=== PATIENT | female | born 1990 | race Caucasian/White ===

== ENCOUNTER 2024-02-10 12:10 | Emergency (ER) | payer BC, SELFPAY ==
[2024-02-10 12:25] VITALS: BP 157/93; PULSE 67; TEMP 36.6; O2SAT 100; BMI 30.8
--- NOTE | 2024-02-10 13:30 | XR_ITS ---
The [address] [address] Patient Name: MELLY SAVAGE MRN: [id number] date: 1990 Sex: F Assigned Patient Location: ER Current Patient Location: ER Accession/Order Number: [id number] Exam Date: 02/10/2024 13:50 Report Date: 02/10/2024 14:05 At the request of: CLEMENTE SMITH Procedure: XR foot LT min 3V IMAGES REVIEWED: XR foot LT min 3V COMPARISON: None available. CLINICAL INDICATION: injury FINDINGS/IMPRESSION: 1. Acute nondisplaced fracture of the distal tuft first distal phalanx appears to be present. 2. There also may be a cortical step-off involving the lateral base of the first distal phalanx. 3. No dislocation. 4. Dorsal forefoot soft tissue swelling. Electronically authenticated by: ALDEN RIDLEY Date: 02/10/2024 14:05
[2024-02-10 15:30] VITALS: BP 140/88; PULSE 64; O2SAT 98
[2024-02-10] MEDS: KETOROLAC TROMETHAMINE 30 MG/ML VIAL IM (15:30)
--- NOTE | 2024-02-10 16:48 | ED_ITS ---
HPI HPI - Extremity Injury (Lower) General Chief Complaint: Extremity Injury, Lower Stated Complaint: LOWER EXTREMITY INJURY Time Seen by Provider: 02/10/24 15:00 Source: patient Mode of arrival: walk-in History of Present Illness HPI Narrative: She had a wooden box fall on her left big toe this a.m., she denies any other injuries and she mentioned that she was doing something at home when this happened. She has been having difficulty walking because of the pain and she felt that the toe is throbbing Related Data Previous Rx's ?Medication ?Instructions ?Recorded diclofenac sodium 75 mg 75 mg PO BID PRN pain #20 tabs 02/10/24 tablet,delayed release Allergies Allergy/AdvReac Type Severity Reaction Status Date / Time No Known Drug Allergies Allergy Verified 02/10/24 12:29 Opioid HPI Opioid Management Most Recent Pain and Opioid Data: No Data to Display Review of Systems ROS Status of ROS 10 or more systems reviewed and unremark able except as noted in history and below Exam Narrative Exam Narrative: Nurses notes and vital signs reviewed and patient is not hypoxic. General: Well-appearing and in no apparent distress. Skin: Warm, dry, no pallor noted. No rash. Head: Normocephalic, atraumatic. Neck: Supple, non-tender. Eye: Pupils are equal, round and EOMI. No scleral icterus. Ears, Nose, Mouth, and Throat: TM are clear, no nasal mucosal hypertrophy. Oral mucosa is moist, no posterior oropharynx erythema, uvula is mid-line Cardiovascular: Regular Rate and Rhythm without murmur, gallop or rub. Respiratory: No accessory muscle use or respiratory distress. Lungs are clear to auscultation, no wheezing, rales or rhonchi Chest Wall: no tenderness Back: No midline thoracic or lumbar vertebral tenderness. No CVA tenderness Musculoskeletal: normal ROM, no calf or popliteal tenderness, the patient have a significant swelling of the big toe on the left side under the nail azeri after being removed she have a hematoma that is C-shaped , GI: Abdomen is soft, non-distended. Normal bowel sounds. No masses appreciated. No tenderness to palpation. No rebound, guarding, or rigidity noted. Neurological: A&O x4. No cranial nerve dysfunction observed. No truncal ataxia. Moves all extremities. Sensation intact. Psychiatric: Cooperative and interactive. Normal mood and affect. Constitutional Vital Signs, click to edit/add: Last Vital Signs Temp 97.9 F 02/10/24 12:25 Pulse 64 02/10/24 15:30 Resp 18 02/10/24 15:30 BP 140/88 02/10/24 15:30 Pulse Ox 98 02/10/24 15:30 O2 Del Method Room Air 02/10/24 12:25 Course Vital Signs Vital signs: Vital Signs Temperature 97.9 F 02/10/24 12:25 Pulse Rate 67 02/10/24 12:25 Respiratory Rate 18 02/10/24 12:25 Blood Pressure 157/93 H 02/10/24 12:25 Pulse Oximetry 100 02/10/24 12:25 Oxygen Delivery Method Room Air 02/10/24 12:25 Temperature 97.9 F 02/10/24 12:25 Pulse Rate 64 02/10/24 15:30 Respiratory Rate 18 02/10/24 15:30 Blood Pressure 140/88 02/10/24 15:30 Pulse Oximetry 98 02/10/24 15:30 Oxygen Delivery Method Room Air 02/10/24 12:25 MDM - Extremity Injury (Lower) MDM Narrative Medical decision making narrative: X-ray of the patient left foot showed that she have a fracture in the tip of the distal phalanx and the it was noted that the patient have this hematoma under the nail of the left big toe but it was noted that this only C-shaped and is not significant right now to cause subungual hematoma But the patient was instructed to elevate her foot and she was provided with Toradol as well as Voltaren for the next few days she was instructed that she need to follow-up with the podiatry as outpatient provided with crutches as well as a postop shoes The patient to come back in case of any progression of the hematoma under the nail and in case of any new symptoms The patient is to follow up with primary care physician in next 2-3 days or to return to the emergency department should any of the signs or symptoms worsen or new symptoms develop. The patient agrees with the following Diagnosis and Treatment plan and the patient will be discharged home. Discharge Plan Discharge Stand Alone Forms: Portal Instructions Chief Complaint: Extremity Injury, Lower Clinical Impression: Fracture of toe Qualifiers: Encounter type: initial encounter Toe: great toe Fracture type: closed Phalanx: distal Fracture alignment: nondisplaced Laterality: left Qualified Code(s): S92.425A - Nondisplaced fracture of distal phalanx of left great toe, initial encounter for closed fracture Patient Disposition: Home, Self-Care Time of Disposition Decision: 15:14 Condition: Good Mode of Transportation: Private Vehicle Prescriptions / Home Meds: New diclofenac sodium 75 mg tablet,delayed release (DR/EC) 75 mg PO BID PRN (Reason: pain ) Qty: 20 0RF Print Language: Jordanian Instructions: Toe Fracture (ED), Post Surgical Shoe (ED) Referrals: ANDRES PICKENS [Primary Care Provider] - 1 week Braulio Tafoya DPM [Physician] - 1 week (follow up in 1 wk) Discharge Date/Time: 02/10/24 15:38
== END 2024-02-10 15:38 | disposition home or self-care (01) ==
PROVIDERS: Emergency Provider Emergency Medicine; PCP Internal Medicine
DX: S92.425A Nondisplaced fracture of distal phalanx of left great toe, initial encounter for closed fracture (principal); W20.8XXA Other cause of strike by thrown, projected or falling object, initial encounter
CPT/HCPCS: 73630; 96372; 99284

== ENCOUNTER 2024-03-04 13:40 | Outpatient (OUT) | payer BC, SELFPAY ==
--- NOTE | 2024-03-04 | XR_ITS ---
The [address] [address] Patient Name: MELLY SAVAGE MRN: [id number] date: 1990 Sex: F Assigned Patient Location: Current Patient Location: Accession/Order Number: [id number] Exam Date: 03/04/2024 13:50 Report Date: 03/04/2024 16:23 At the request of: SUNNY BOOTHE Procedure: XR foot LT min 3V PROCEDURE: XR foot LT min 3V COMPARISON: 02/10/2024 HISTORY: LEFT FOOT PAIN FINDINGS: BONES:Stable complex fracture tuft of the first distal phalanx with interval increase in lysis. No significant bone formation. No new fracture or dislocation SOFT TISSUES:Forefoot soft tissue swelling EFFUSION:None visible. OTHER: Negative. XR/XR foot LT min 3V IMPRESSION: Stable complex fracture tuft of the first distal phalanx with lytic healing Electronically authenticated by: VENU CARVAJAL Date: 03/04/2024 16:23
== END 2024-03-04 13:41 | disposition home or self-care (01) ==
PROVIDERS: PCP Internal Medicine; Visit Provider Podiatrist Foot & Ankle Surgery
DX: S92.425D Nondisplaced fracture of distal phalanx of left great toe, subsequent encounter for fracture with routine healing (principal)
CPT/HCPCS: 73630

== ENCOUNTER 2024-03-17 19:42 | Outpatient (REF) | payer BC, SELFPAY ==
--- OUTSIDE RECORDS SUMMARY | 2024-03-17 19:53 | XMS_ITS | CCD ---
Author Organization [facility] Care Team Providers Care Hat Ironer Name Role Phone REQUEST, NONE LISTED Unavailable Unavailable HAY, JOSELUIS Unavailable Unavailable HAY, JOSELUIS Unavailable Unavailable JUDITH VAN Unavailable Unavailable ANDRES SKINNER Unavailable Unavailable KRISTOPHER, FLORY Unavailable Unavailable KRISTOPHER, FLORY Unavailable Unavailable KRISTOPHER, FLORY Unavailable Unavailable KRISTOPHER, FLORY Unavailable Unavailable Andres Skinner MD Primary Care Provider Allergies Allergy Classification Reported Allergen(s) Allergy Type Date of Onset Reaction(s) Facility (1 source) NKA Drug allergy (disorder) [facility] Repository (1 source) No Known Drug Allergies Drug allergy (disorder) [facility] Repository Medications Current Medications Medication Drug Class(es) Dates Sig (Normalized) Sig (Original) losartan potassium 50 mg oral tablet (2 sources) Angiotensin 2 Receptor Sushil Start: 09-04-2023 End: 11-19-2023 take 1 tablet by mouth once daily losartan (COZAAR) 50 mg tablet take 1 tablet by mouth once daily 90 tablet 2 11/19/2023 Active Problems Active Problems Problem Classification Problem Date Documented Da te Episodic/Chronic Essential hypertension (1 source) Hypertensive disorder; Translations: [Essential (primary) hypertension] 01-11-2021 Chronic Past or Other Problems Problem Classification Problem Date Documented Da te Episodic/Chronic Mood disorders (1 source) Mood disorders Onset: 08-31-2023 08-31-2023 Results Test Name Value Interpretation Reference Range Facil ity PREG QUANT HCGon 06-04-2018 HCG QUANT <2.39 Normal [facility] Comment on above: Performed By: #### P REGQNT ####[facility] [address] [place] [id number] HCG RANGE SEE BELOW Normal [facility] Comment on above: Result Comment: 5-50 0-1 WEEK 40-300 1-2 WEEKS 100-1,000 2-3 WEEKS 500-6,000 3-4 WEEKS 5,000-200,000 1-2 MONTHS 10,000-100,000 2-3 MONTHS 3,000-50,000 2ND TRIMESTER 1,000-50,000 3RD TRIMESTER Performed By: #### P REGQNT ####[facility] Pl[address]bz[address] [place] ER URINE PROFILEon 8 BILIRUBIN Negative Normal NEGATIVE [facility] Comment on above: Performed By: #### E RUR ####[facility] Gaznmwosdu7366 [address] [place] BLOOD Negative Normal NEGATIVE [facility] Comment on above: Performed By: #### E RUR ####[facility] [address] [place] [address] [place] CLARITY CLEAR Normal [facility] Comment on above: Performed By: #### E RUR ####[facility] [address] [place] [address] [place] COLOR LT. YELLOW Normal YELLOW [facility] Comment on above: Performed By: #### E RUR ####[facility] [address] [place] [address] [place] ERUAHD A micrscopic examination will be performed if indicated. Normal [facility] Comment on above: Performed By: #### E RUR ####[facility] Cplbps[address]qwk[address] [place] GLUCOSE Negative Normal NEGATIVE [facility] Comment on above: Performed By: #### E RUR ####[facility] Wcwfreypat[address] [place] KETONES TRACE Normal NEGATIVE [facility] Comment on above: Performed By: #### E RUR ####[facility] [address] [place] [address] [place] LEUKOCYTES Negative Normal NEGATIVE [facility] Comment on above: Performed By: #### E RUR ####[facility] M[address]usoi[address] [place] NITRITE Negative Normal NEGATIVE [facility] Comment on above: Performed By: #### E RUR ####[facility] Rldfrjbvdz[address] [place] pH 6.0 Normal 5-9 [facility] Comment on above: Performed By: #### E RUR ####[facility] Nwmsht[address]ylg[address] [place] PROTEIN Negative Normal [facility] Comment on above: Performed By: #### E RUR ####[facility] Mjpfpztwbv39[address] [place] SPEC GRAVITY 1.010 Normal 1.005-<=1.025 [facility] Comment on above: Performed By: #### E RUR ####[facility] [address] [place] [address] [place] UR MICRO IND NOT INDICATED Normal [facility] Comment on above: Performed By: #### E RUR ####[facility] [address] [place] [address] [place] UROBILINOGEN 0.2 EU/dl Normal [facility] Comment on above: Performed By: #### E RUR ####[facility] [address] [place] [address] [place] URon 11-27-2017 , QUAL Negative Normal NEGATIVE [facility] Comment on above: Performed By: #### P REGU ####[facility] [address] [place] [address] [place] PROF CHEM 8 (BAS METB)on Anion gap 16.5 mmol/L Normal [facility] Comment on above: Performed By: #### B MP, TSH ####[facility] [address] [place] [address] [place] BUN/Creatinine Ratio 18.3 mg/mg Normal [facility] Comment on above: Performed By: #### B MP, TSH ####[facility] [address] [place] [address] [place] Calcium 9.9 mg/dL Normal 8.4-10.2 [facility] Comment on above: Performed By: #### B MP, TSH ####[facility] [address] [place] [id number] Chloride 100 mmol/L Normal 98-107 [facility] Comment on above: Performed By: #### B MP, TSH ####[facility] [address] [place] [address] CO2 28.0 mmol/L Normal 22.0-30.0 [facility] Comment on above: Performed By: #### B MP, TSH ####[facility] Neow[address]xgsx[address] [place] Creatinine 0.74 mg/dL Normal 0.52-1.04 [facility] Comment on above: Performed By: #### B CARLA, TSH ####[facility] [address] [place] [id number] EGFR-AF BARBADIAN >60 Normal >=60 [facility] Comment on above: Performed By: #### B CARLA, TSH ####[facility] Wv[address]oe[address] [place] EGFR-NON AF BARBADIAN >60 Normal >=60 [facility] Comment on above: Performed By: #### B CARLA, TSH ####[facility] [address] [place] [id number] Glucose mass conc 93 mg/dL Normal 74-106 [facility] Comment on above: Performed By: #### B MP, TSH ####[facility] Phdefkmekd[address] [place] Potassium molar conc 3.9 mmol/L Normal 3.4-5.0 [facility] Comment on above: Performed By: #### B MP, TSH ####[facility] Oqvx[address] [place] Sodium 140 mmol/L Normal 137-145 [facility] Comment on above: Performed By: #### B MP, TSH ####[facility] [address] [place] Urea nitrogen 14.0 mg/dL Normal 7.0-17.0 [facility] Comment on above: Performed By: #### B MP, TSH ####[facility] Ww[address]blpf7037 [address] Dorman TSHon 11-27-2017 Thyroid stimulating hormone (TSH) SEE BELOW Normal [facility] Comment on above: Result Comment: <0.3 4 UIU/ml HYPERTHYROID 0.34-5.60 UIU/ml EUTHYROID >5.60 UIU/ml HYPOTHYROID Performed By: #### B MP, TSH ####[facility] Ch[address] [place] Thyroid stimulating hormone (TSH) 2.540 uIU/mL Normal 0.470-4.680 [facility] Comment on above: Performed By: #### B MP, TSH ####[facility] [address] [place] Encounters Encounter Date Encounter Type Care Provider Facility Start: 11-19-2023 Refill Nicole Severino C[facility] Start: 06-04-2018 End: 06-05-2018 Patient encounter FLORY KRISTOPHER Facility: Start: 11-27-2017 End: 11-27-2017 Patient encounter NONE LISTED REQUEST Facility: Procedures Date Procedure Procedure Detail Performing Clinician Start: 08-31-2023 Adult depression scr eening assessment Nicole Severino CMA Plan of Treatment Date Care Activity Detail Author Start: 08-31-2024 Adult BMI Screening Adult BMI Screen ing [facility] Start: 08-31-2024 Depression Screening Depression Scre ening [facility] Start: 08-31-2024 Tobacco Screening Tobacco Screening [facility] Start: 07-13-2023 Influenza vaccination Influenza Vacc ine [facility] Start: 2010 Screening for malign ant neoplasm of cervix Pap Smear [facility] Start: 2007 Adult BMI Follow Up Plan Adult BMI Follow Up Plan [facility] Start: 2000 DTaP,Tdap and Td Vaccines (5 - Tdap) DTaP,Tdap and Td Vaccines (5 - Tdap) [facility] Immunizations Immunization Date Immunization Notes Care Provider Fa cility 02-28-2001 measles, mumps and rubella virus vaccine Nicole Severino [facility] 02-28-2001 poliovirus vaccine, inactivated Nicoleyoung Severino [facility] 05-03-1992 diphtheria, tetanus toxoids and pertussis vaccine [facility] 05-03-1992 haemophilus influenz ae type b vaccine, conjugate unspecified formulation [facility] 05-03-1992 trivalent poliovirus vaccine, live, oral Nicole Severino [facility] 12-23-1990 diphtheria, tetanus toxoids and pertussis vaccine [facility] 12-23-1990 measles, mumps and rubella virus vaccine Nicole [facility] 1989 diphtheria, tetanus toxoids and pertussis vaccine [facility] 1990 trivalent poliovirus vaccine, live, oral Nicoleyoung Amayason [facility] 1989 diphtheria, tetanus toxoids and pertussis vaccine Nicole Maycol [facility] 1989 trivalent poliovirus vaccine, live, oral Nicole Maycol [facility] Payers Date Payer Category Payer Unknown [employer] SS (PPO) [id number] 2021-Present [phone] [address] [place] [address] [id number] 1960 Private Health Insurance [id number] Social History Date Type Detail Facility [facility]: [facility] Start: 07-23-2019 Tobacco use and exposure Smokeless tobacco non-user [facility] Start: 08-31-2023 Alcohol intake Current drinke r of alcohol (finding) [facility] Start: 12-07-2020 End: 08-31-2023 [facility] of [facility] Start: 12-07-2020 End: 08-31-2023 Tobacco use panel [facility] [employer] [facility] Adolescent depressio n screening assessment 0 [facility] Start: 07-23-2019 Alcohol Comment every Sat. & s ometimes during week [facility] Start: 1990 Sex Assigned At Not on file P [facility] [employer] System Note 11-19-2023 Telephone Encounter - Nicole Severino CMA - 11/19/2023 1:35 PM EST Note Date & Type Note Facility 11-19-2023 Miscellaneous Notes Formattin g of this note might be different from the original. Refill request, patient changed pharmacy [facility] this [facility] Note 11-19-2023 Telephone Encounter - Nicole Severino CMA - 11/19/2023 1:35 PM EST Note Date & Type Note Facility 11-19-2023 Telephone encount er Note Refill request, patient changed [facility] Instructions Note Date & Type Note Facility Instructions Not on filedocumented in this en counter [facility] Summary Purpose Family History No Family History Records Found Advance Directives No Advanced Directives Records Found Additional Source Comments INFORMATION SOURCE (unrecogn ized section and content) DATE CREATED AUTHOR 06/05/2018 The Shahida melissa Reason for Visit (unrecogniz ed section and content) Reason Onset Date Comments Med Refill 11/19/2023 Care Teams (unrecognized sec tion and content) Hat Ironer Relationship Specialty Start Date End Date Andres Skinner MD [address] [place] [address], [address] [place] [address] PCP - General Pediatrics 03/16/17 FOR RECORDS PERTAINING TO PATIENTS WHO ARE OR HAVE BEEN ENROLLED IN A CHEMICAL DEPENDENCY/SUBSTANCEABUSE PROGRAM, SOME INFORMATION MAY BE OMITTED. This clinical summary was aggregated from multiple sources. Caution should be exercised in using it in the provision of clinical care. This summary normalizes information from multiple sources, and as a consequence, information in this document may materially change the coding, format and clinical context of patient data. In addition, data may be omitted in some cases. CLINICAL DECISIONS SHOULD BE BASED ON THE PRIMARY CLINICAL RECORDS. [employer] [facility]. provides no warranty or guarantee of the accuracy or completeness of information in this document.
[2024-03-21 19:07] LABS: Age Gdln ACOG Testing Note (.); HPV Aptima Negative (Negative); IGP, Aptima HPV, rfx 16/18,45 Note (.)
== END 2024-03-17 19:43 | disposition home or self-care (01) ==
LOC: LAB 19:42
PROVIDERS: PCP Internal Medicine; Visit Provider Physician Assistant
DX: Z01.419 Encounter for gynecological examination (general) (routine) without abnormal findings (principal)
CPT/HCPCS: 87624; G0145

== ENCOUNTER 2024-03-19 13:47 | Outpatient (OUT) | payer BC, SELFPAY ==
--- NOTE | 2024-03-19 14:05 | US_ITS ---
The [address] [address] Patient Name: MELLY SAVAGE MRN: [id number] date: 1990 Sex: F Assigned Patient Location: Current Patient Location: US Accession/Order Number: [id number] Exam Date: 03/19/2024 14:06 Report Date: 03/19/2024 14:44 At the request of: KIT KELLER Procedure: US pelvis w/ transvaginal EXAMINATION: US pelvis w/ transvaginal HISTORY: polycystic ovarian syndrome E28.2 COMPARISON: No relevant comparison available. FINDINGS: Transabdominal and transvaginal images The uterus is normal in size, contour and myometrial echotexture measuring 9.3 x 4.2 x 5.9 cm, anteverted. No focal myometrial mass. The endometrium measures 7 mm, normal. The right ovary measures 2.8 x 3.1 x 2.6 cm. Normal color and Doppler flow. Multiple subcentimeter areas of anechoic echogenicity consistent with follicles. The left ovary measures 2.9 x 2.1 x 3.1 cm. Normal color and Doppler flow. Multiple subcentimeter areas of anechoic echogenicity consistent with follicles No free fluid US/US pelvis w/ transvaginal IMPRESSION: Polycystic ovarian morphology Electronically authenticated by: VENU CARVAJAL Date: 03/19/2024 14:44
[2024-03-19 14:34] LABS: Basophils Absolute Auto 0.1 10^3/uL (0.0-0.1); Basophils Percent Auto 1.1 % (0.2-2.0); Eosinophils Absolute Auto 0.1 10^3/uL (0.0-0.7); Eosinophils Percent Auto 0.9 % (0.9-7.0); Hematocrit 39.1 % (36.0-48.0); Hemoglobin 12.8 g/dL (12.0-16.0); Immature Granulocytes Abs Auto 0.02 10^3/uL (0.00-0.03); Immature Granulocytes Pct Auto 0.4 % (0.0-0.5); Lymphocytes Absolute Auto 1.3 10^3/uL (1.2-3.8); Lymphocytes Percent Auto 23.3 % (20.5-60.0); Mean Corpuscular HGB Conc 32.7 g/dL (29.9-35.2); Mean Corpuscular Hemoglobin 30.2 pg (26.7-34.0); Mean Corpuscular Volume 92.2 fL (81.0-99.0); Mean Platelet Volume 10.6 fL (9.5-13.5); Monocytes Absolute Auto 0.3 10^3/uL (0.3-0.8); Monocytes Percent Auto 6.1 % (1.7-12.0); Neutrophils Absolute Auto 3.7 10^3/uL (1.4-6.5); Neutrophils Percent Auto 68.2 % (43.0-75.0); Platelet Count 226 10^3/uL (150-450); Red Blood Count 4.24 10^6/uL (4.20-5.40); White Blood Count 5.4 10^3/uL (4.0-11.0)
[2024-03-19 14:57] LABS: HCG Quantitative <1 mIU/mL; Thyroid Stimulating Hormone 1.597 uIU/mL (0.358-3.740)
[2024-03-19 15:02] LABS: Estimated Average Glucose 108 mg/dL; Free T4 0.95 ng/dL (0.76-1.46); Glycohemoglobin A1C 5.4 % (4.5-6.2)
[2024-03-20 04:08] LABS: FSH 5.3 mIU/mL (.); Luteinizing Hormone(LH) 9.8 mIU/mL (.)
== END 2024-03-19 13:48 | disposition home or self-care (01) ==
PROVIDERS: PCP Internal Medicine; Visit Provider Physician Assistant
DX: E28.2 Polycystic ovarian syndrome (principal)
CPT/HCPCS: 36415; 76830; 76856; 82626; 82627; 83001; 83002; 83036; 84439; 84443; 84702; 85025

== ENCOUNTER 2024-04-01 13:56 | Outpatient (OUT) | payer BC, SELFPAY ==
--- NOTE | 2024-04-01 | XR_ITS ---
The [address] [address] Patient Name: MELLY SAVAGE MRN: [id number] date: 1990 Sex: F Assigned Patient Location: Current Patient Location: Accession/Order Number: [id number] Exam Date: 04/01/2024 13:56 Report Date: 04/02/2024 07:51 At the request of: SUNNY BOOTHE Procedure: XR foot LT min 3V PROCEDURE: XR foot LT min 3V COMPARISON: 03/04/2024 HISTORY: LEFT FOOT PAIN FINDINGS: BONES:Stable complex fracture of the first distal phalanx involving the tuft as well as the base with increase in lysis. SOFT TISSUES:Negative. No visible soft tissue swelling. EFFUSION:None visible. OTHER: Negative. XR/XR foot LT min 3V IMPRESSION: Stable complex fracture first distal phalanx Electronically authenticated by: VENU CARVAJAL Date: 04/02/2024 07:51
--- OUTSIDE RECORDS SUMMARY | 2024-04-01 13:59 | XMS_ITS | CCD ---
Author Organization [facility] Care Team Providers Care [employer] Name Role Phone REQUEST, NONE LISTED Unavailable Unavailable KADEN, JOSELUIS Unavailable Unavailable KADEN, JOSELUIS Unavailable Unavailable JUDITH VAN Unavailable Unavailable ANDRES SKINNER Unavailable Unavailable KRISTOPHER, FLORY Unavailable Unavailable KRISTOPHER, FLORY Unavailable Unavailable KRISTOPHER, FLORY Unavailable Unavailable KRISTOPHER, FLORY Unavailable Unavailable Andres Skinner MD Primary Care Provider KIT KELLER Attending Unavailable Allergies Allergy Classification Reported Allergen(s) Allergy Type Date of Onset Reaction(s) Facility (1 source) NKA Drug allergy (disorder) [facility] Repository (1 source) No Known Drug Allergies Drug allergy (disorder) [facility] Repository Medications Current Medications Medication Drug Class(es) [...] QUANT HCGon 06-04-2018 HCG QUANT <2.39 Normal [facility] Comment on above: Performed By: #### P REGQNT ####[facility] Iyjngrcbbd6526 [address] [place] HCG RANGE SEE BELOW Normal [facility] Comment on above: Result Comment: 5-50 0-1 WEEK 40-300 1-2 WEEKS 100-1,000 2-3 WEEKS 500-6,000 3-4 WEEKS 5,000-200,000 1-2 MONTHS 10,000-100,000 2-3 MONTHS 3,000-50,000 2ND TRIMESTER 1,000-50,000 3RD TRIMESTER Performed By: #### P REGQNT ####[facility] Imfykkdqos7017 [address] [place] ER URINE PROFILEon 8 BILIRUBIN Negative Normal NEGATIVE [facility] Comment on above: Performed By: #### E RUR ####[facility] [address] [place] [address] [place] BLOOD Negative Normal NEGATIVE [facility] Comment on above: Performed By: #### E RUR ####[facility] [address] [place] [address] [place] CLARITY CLEAR Normal [facility] Comment on above: Performed By: #### E RUR ####[facility] Aymkrlmcdk9122 [address] [place] COLOR LT. YELLOW Normal YELLOW [facility] Comment on above: Performed By: #### E RUR ####[facility] [address] [place] [address] [place] ERUAHD A micrscopic examination will be performed if indicated. Normal [facility] Comment on above: Performed By: #### E RUR ####[facility] Lthnduqoft2812 [address] [place] GLUCOSE Negative Normal NEGATIVE [facility] Comment on above: Performed By: #### E RUR ####[facility] [address] [place] [address] [place] KETONES TRACE Normal NEGATIVE [facility] Comment on above: Performed By: #### E RUR ####[facility] Folabuqptv2383 [address] [place] LEUKOCYTES Negative Normal NEGATIVE [facility] Comment on above: Performed By: #### E RUR ####[facility] Ajimxjmcwt5575 [address] [place] NITRITE Negative Normal NEGATIVE [facility] Comment on above: Performed By: #### E RUR ####[facility] Qxuvjyhciw2417 [address] [place] pH 6.0 Normal 5-9 [facility] Comment on above: Performed By: #### E RUR ####[facility] [address] [place] [address] [place] PROTEIN Negative Normal [facility] Comment on above: Performed By: #### E RUR ####[facility] [address] [place] [address] [place] SPEC GRAVITY 1.010 Normal 1.005-<=1.025 [facility] Comment on above: Performed By: #### E RUR ####[facility] [address] [place] [address] [place] UR MICRO IND NOT INDICATED Normal [facility] Comment on above: Performed By: #### E RUR ####[facility] [address] [place] [address] [place] UROBILINOGEN 0.2 EU/dl Normal [facility] Comment on above: Performed By: #### E RUR ####[facility] [address] [place] [address] [place] URon 11-27-2017 , QUAL Negative Normal NEGATIVE [facility] Comment on above: Performed By: #### P REGU ####[facility] [address] [place] [address] [place] PROF CHEM 8 (BAS METB)on Anion gap 16.5 mmol/L Normal [facility] Comment on above: Performed By: #### B MP, TSH ####[facility] [address] [place] [address] [place] BUN/Creatinine Ratio 18.3 mg/mg Normal [facility] Comment on above: Performed By: #### B MP, TSH ####[facility] [address] [place], [place] [address] Calcium 9.9 mg/dL Normal 8.4-10.2 [facility] Comment on above: Performed By: #### B MP, TSH ####[facility] Sm[address]otlopv2416 [place], [place] [address] Chloride 100 mmol/L Normal 98-107 [facility] Comment on above: Performed By: #### B MP, TSH ####[facility] [address] [place] [id number] CO2 28.0 mmol/L Normal 22.0-30.0 [facility] Comment on above: Performed By: #### B CARLA, TSH ####[facility] [address] [place] [id number] Creatinine 0.74 mg/dL Normal 0.52-1.04 [facility] Comment on above: Performed By: #### B CARLA, TSH ####[facility] [address] [place], [place] [address] EGFR-AF ERITREAN >60 Normal >=60 [facility] Comment on above: Performed By: #### B CARLA, TSH ####[facility] [address] [place] [id number] EGFR-NON AF ERITREAN >60 Normal >=60 [facility] Comment on above: Performed By: #### B CARLA, TSH ####[facility] [address]42[address] [place], [place] [address] Glucose mass conc 93 mg/dL Normal 74-106 [facility] Comment on above: Performed By: #### B MP, TSH ####[facility] [address] [place] [id number] Potassium molar conc 3.9 mmol/L Normal 3.4-5.0 [facility] Comment on above: Performed By: #### B MP, TSH ####[facility] [address] [place] [id number] Sodium 140 mmol/L Normal 137-145 [facility] Comment on above: Performed By: #### B MP, TSH ####[facility] Cbvpaqzari[address] [place] Urea nitrogen 14.0 mg/dL Normal 7.0-17.0 [facility] Comment on above: Performed By: #### B MP, TSH ####[facility] Yukhdjcmiy0592 [address] [place] TSHon 11-27-2017 Thyroid stimulating hormone (TSH) SEE BELOW Normal [facility] Comment on above: Result Comment: <0.3 4 UIU/ml HYPERTHYROID 0.34-5.60 UIU/ml EUTHYROID >5.60 UIU/ml HYPOTHYROID Performed By: #### B MP, TSH ####[facility] Nang[address]iojw3241 [address] [place] Thyroid stimulating hormone (TSH) 2.540 uIU/mL Normal 0.470-4.680 [facility] Comment on above: Performed By: #### B MP, TSH ####[facility] Edbpalfzkw3844 [address] [place] Encounters Encounter Date Encounter Type Care Provider Facility Start: 03-17-2024 End: 03-17-2024 ambulatory KIT JOHNSONEY Not Available Start: 11-19-2023 Refill Nicole Severino CMA [facility] Start: 06-04-2018 End: 06-05-2018 Patient encounter FLORY SUMMERS Facility: Start: 11-27-2017 End: 11-27-2017 Patient encounter NONE LISTED REQUEST Facility: Procedures Date Procedure Procedure Detail Performing Clinician Start: 08-31-2023 Adult depression scr eening assessment Nicole Severino CMA Plan of Treatment Date Care Activity Detail Author Start: 08-31-2024 Adult BMI Screening Adult BMI Screen ing [facility] Start: 08-31-2024 Depression Screening Depression Scre ening [facility] Start: 08-31-2024 Tobacco Screening Tobacco Screening [facility] Start: 07-13-2023 Influenza vaccination Influenza Vacc ine [facility] Start: 2010 Screening for malign ant neoplasm of cervix Pap Smear [facility] Start: 2007 Adult BMI Follow Up Plan Adult BMI Follow Up Plan [facility] Start: 2000 DTaP,Tdap and Td Vaccines (5 - Tdap) DTaP,Tdap and Td Vaccines (5 - Tdap) [facility] Immunizations Immunization Date Immunization Notes Care Provider Fa meraryty 02-28-2001 measles, m[facility]ella [facility] poliovirus vaccine, inactivated [facility] 05-03-1992 diphtheria, tetanus toxoids and pertussis vaccine [facility] 05-03-1992 haemophilus influenz ae type b vaccine, conjugate unspecified formulation [facility] 05-03-1992 trivalent poliovirus vaccine, live, oral Nicole [facility] 12-23-1990 diphtheria, tetanus toxoids and pertussis vaccine [facility] 12-23-1990 measles, mumps and rubella virus vaccine [facility] 1989 diphtheria, tetanus toxoids and pertussis vaccine [facility] 1989 trivalent poliovirus vaccine, live, oral Nicole Maycol [facility] 1989 diphtheria, tetanus toxoids and pertussis vaccine [facility] 1989 trivalent poliovirus vaccine, live, oral Nicole Maycol [facility] Payers Date Payer Category Payer Unknown [employer] (PPO) [id number] 2021-Present [phone] [address] [place] [address] [id number] 2021 Unknown [id number] 1989 Unknown [id number] 1959 Private Health Insurance [id number] Social History Date Type Detail Facility Start: 07-23-2019 Tobacco smoking stat us NHIS Never smoked tobacco [facility] Start: 07-23-2019 Tobacco use and exposure Smokeless tobacco non-user [facility] Start: 08-31-2023 Alcohol intake Current drinke r of alcohol (finding) [facility] Start: 12-07-2020 End: 08-31-2023 History of Social function [facility] Start: 12-07-2020 End: 08-31-2023 Tobacco use panel [facility] Adolescent depressio n screening assessment 0 [facility] Start: 07-23-2019 Alcohol Comment every Sat. & s ometimes during week [facility] Start: 1989 Sex Assigned At Not on file P [facility] Note 11-19-2023 Telephone Encounter - Nicole Severino CMA - 11/19/2023 1:35 PM EST Note Date & Type Note Facility 11-19-2023 Miscellaneous Notes Formattin g of this note might be different from the original. Refill request, patient changed pharmacy documented in this encounter [facility] Telephone encounter Note 11-19-2023 Telephone Encounter - Nicole Severino CMA - 11/19/2023 1:35 PM EST Note Date & Type Note Facility 11-19-2023 Telephone encount er Note Refill request, patient changed pharmacy [facility] Instructions Note Date & Type Note Facility Instructions Not on filedocumented in this en counter [facility] Summary Purpose Family History No Family History Records FoundNo Family History Records Found Advance Directives No Advanced Directives Records FoundNo Advanced Directives Records Found Additional Source Comments INFORMATION SOURCE (unrecogn ized section and content) DATE CREATED AUTHOR 06/05/2018 [facility] DATE CREATED AUTHOR AUTHOR'S ORGANIZ ATION 03/18/2024 [facility] EPIC Reason for Visit (unrecogniz ed section and content) Reason Onset Date Comments Med Refill 11/19/2023 Care Teams (unrecognized sec tion and content) [employer] Relationship Specialty Start Date End Date Andres Skinner MD [address] [place] [address], [address] [place] [address] PCP - General Pediatrics 03/16/17 FOR RECORDS [...] BE BASED ON THE PRIMARY CLINICAL RECORDS. [employer] [facility]. provides no warranty or guarantee of the accuracy or completeness of information in this document.
== END 2024-04-01 13:57 | disposition home or self-care (01) ==
LOC: EC 13:56
PROVIDERS: PCP Internal Medicine; Visit Provider Podiatrist Foot & Ankle Surgery
DX: M79.672 Pain in left foot (principal); S92.425D Nondisplaced fracture of distal phalanx of left great toe, subsequent encounter for fracture with routine healing
CPT/HCPCS: 73630

== ENCOUNTER 2024-11-24 13:29 | Emergency (ER) | payer BC, SELFPAY ==
[2024-11-24 13:41] VITALS: BP 126/85; PULSE 66; TEMP 36.6; O2SAT 98; BMI 25.0
--- OUTSIDE RECORDS SUMMARY | 2024-11-24 13:51 | XMS_ITS | CCD ---
Author Organization [facility] Care Team Providers Care Information Systems Security Analyst Name Role Phone REQUEST, NONE LISTED Unavailable Unavailable HAY, JOSELUIS Unavailable Unavailable HAY, JOSELUIS Unavailable Unavailable JUDITH VAN Unavailable Unavailable ANDRES PICKENS Unavailable Unavailable KRISTOPHER, FLORY Unavailable Unavailable KRISTOPHER, FLORY Unavailable Unavailable KRISTOPHER, FLORY Unavailable Unavailable KRISTOPHER, FLORY Unavailable Unavailable Andres Pickens MD Primary Care Provider ANDRES PICKENS Referring Unavailable ANDRES PICKENS Primary Care Unavailable KIT KELLER Attending Unavailable LONA NGUYEN Attending Unavailable NATHALY JOHN Attending Unavailable NATHALY JOHN Attending Unavailable LONA NGUYEN Attending Unavailable Unavailable Primary Care Provider UnavailTAMRA Winters Attending Unavailable Nathaly John MD Primary Care Provider [phone] Allergies Allergy Classification Reported Allergen(s) Allergy Type Date of Onset Reaction(s) Facility (1 source) NKA Drug allergy (disorder) [facility] Repository (1 source) No Known Drug Allergies Drug allergy (disorder) [facility] Repository Medications Current Medications Medication Drug Class(es) Dates Sig (Normalized) Sig (Original) losartan potassium 50 mg oral tablet (10 sources) Angiotensin 2 Receptor Sushil Start: 09-04-2023 End: 10-03-2024 take 1 tablet by mouth once daily losartan (COZAAR) 50 mg tablet TAKE 1 TABLET BY MOUTH EVERY DAY 30 tablet 10/03/2024 Active 24 hr metFORMIN hydrochloride 500 mg extended release oral tablet (4 sources) Biguanide Start: 04-16-2024 End: 04-16-2025 take 1 tablet by mouth every twenty-four hours at mealtime metFORMIN XR (Glucophage-XR) 500 MG 24 hr tablet Indications: PCOS (polycystic ovarian syndrome) Take 1 tablet (500 mg) by mouth in the evening. Take with meals Do not crush, chew, or split. 30 tablet 11 04/16/2024 04/16/2025 Active WEGOVY 1.7 mg/0.75 mL pen injector (2 sources) Start: 08-07-2024 WEGOVY 1.7 mg/0.75 mL pen injector 1.7 mg one time a week. 08/07/2024 Active Problems Active Problems Problem Classification Problem Date Documented Da te Episodic/Chronic Essential hypertension (4 sources) Hypertensive disorder; Translations: [Essential (primary) hypertension] Onset: 08-14-2024 01-11-2021 Chronic Residual codes; unclassified (1 source) Family history of polycystic kidney; Translations: [Family history of polycystic kidney] Onset: 04-22-2024 Episodic Residual codes; unclassified (1 source) Encounter for cosmetic surgery; Translations: [Encounter for cosmetic surgery] Onset: 08-14-2024 Episodic Residual codes; unclassified (1 source) Patient encounter status; Translations: [Encounter for cosmetic surgery] 08-14-2024 Episodic Past or Other Problems Problem Classification Problem Date Documented Da te Episodic/Chronic Mood disorders (2 sources) Mood disorders Onset: 08-31-2023 08-31-2023 Neoplasms of unspecified nature or uncertain behavior (2 sources) Neoplasm of uncertain behavior of skin of lower limb; Translations: [Neoplasm of uncertain behavior of skin] 07-02-2024 Episodic Other skin disorders (1 source) Rhytide of glabellar skin; Translations: [Other specified disorders of the skin and subcutaneous tissue] 07-01-2024 Episodic Results Test Name Value Interpretation Reference Range Facility [facility] 08-14-2024 CNOV Office Visit (PLASMN ) MELLY SAVAGE ([id number]) 1990 F Date Time Provider Department 08/14/24 3:00 PM TAMRA GODDARD PLASMN During your visit today, we recorded the following information about you: Temperature Pulse Blood pressure Weight 97.2 degrees 80/minute 155/100 74.6 kg Height Last Period 1.651 m 07/28/24 Tamra Goddard MD 08/24/2024 10:19 PM Signed CC: BREAST AUGMENTATION EVALUATION HPI: Melly Savage is a 34 year old that presents today for breast augmentation evaluation. Pt c/o saggy breasts and decreased fullness of bilateral breasts Prior breast surgeries: denies PAIN: denies BRA SIZE: C DESIRED SIZE: happy with size but would like to be lifted and amin Prior treatment / other provider: denies OB HISTORY: PARA:2 : Patient did breastfeed: length of time 6-9 months Plan for future pregnancies: No Hx of breast disease: No patient history of previous breast disease Prior Mammogram: No Family Hx of breast cancer: No family history of breast cancer PMH: No past medical history on file. Hypertension (takes losartan) and Polycystic ovaries She is taking Wegovy for weight loss, states she would like to lose 20-30 more lbs PSH: No past surgical history on file. Meds: No current outpatient medications on file prior to visit. No current facility-administered medications on file prior to visit. 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 Breast Exam: Asymmetry: left nipple lower than right Masses: no Axillary Lymphadenopathy: no Scars: no Shoulder position: Right is level with the left Note: measurements are in centimeters SN to NIPPLE: R: 24.5 L: 26.5 WIDTH: R: 15 L: 15 IMF to NIPPLE: R: 9.5 L: 9 Ptosis: R: Grade II L: Grade II Medially displaced nipple: None Assessment: The patient is a adequate candidate for breast augmentation. She will also possibly need mastopexy as well. Photographs have been taken for planning purposes. Plan: -Blood pressure would need to be adequately managed prior to surgery, follows with her primary care provider -Recommended lab work for nutrition through primary care provider since patient is attempting weight loss and taking Wegovy -Discussed patient will likely achieve a better cosmetic result once she reaches her weight loss goal. Advised that patient reach weight loss goal prior to proceeding with surgery -Discussed benefits and risks between saline and silicone implants -Quote provided for $7,840 for breast augmentation with silicone implants only, quote provided for breast augmentation with silicone implants and bilateral mastopexy $8,860 Planned procedure: bilateral breast augmentation with implants, possible mastopexy; I have discussed the procedure in detail with the patient and she agrees to the procedure understanding the roles and tasks of the personnel to be involved; the alternatives to the procedure to include observation. She understands the risks to include but not be limited to infection, bleeding, pain, scar, need for re-operation, recurrence, asymmetry, loss of nipple, loss of nipple height, nipple sensation change, silicone implant rupture/capsule/mass effect/mammographic changes/wrinkles, inability to breast feed, poor aesthetic results and anesthetic/perioperativ e complications (DVT, PE, UT, and ). The patient agrees and consents to the procedure attesting to her understanding. Follow up in October 2024 or November 2024 The patient is seen and examined by Tamra Goddard M.D. and the following reflects his service. Scribed by Ina Kee RN I agree with the Chief Complaint, ROS, and Past Histories independently gathered by the clinical manager sales support and the remaining scribed note accurately describes my personal service to the patient. patient's condition reviewed and examined plan of care and options of management, complexity, risk benefit limitation potential complication, success /failure of management, expected result and recovery discussed I spent a total of 30 minutes on the date of service which included preparing to see the patient, [id number] patient care, completing clinical documentation, obtaining AND reviewing separately an obtained history, performing a medically appropriate examination, counseling AND educating the patient/family/caregive r, ordering medications, tests, or procedures, communicating with other healthcare providers, independently interpreting the results, communicating results to the patient care team, and continued patient care c (more content not included)... Normal [facility] Panel Informationon 07-02 Complexity: Intermediate Final length (cm): 2.1 Reason for type of repair: allow closure of the large defect Undermining: edges undermined Undermining comment: The surrounding tissue was undermined until the skin edges could be approximated without undue tension. Any tissue redundancies were removed. Subcutaneous layers (deep stitches): Suture size: 3-0 Suture type comment: Biosyn Stitches: Buried horizontal mattress (Closure was performed in a layered fashion with subcutaneous tissue closed first using tension-bearing absorbable sutures to the level of the superficial fascia.) Fine/surface layer approximation (top stitches): Suture size: 4-0 Suture type: Prolene (polypropylene) Stitches: simple running Stitches comment: Epicuticular skin sutures were then placed with minimal tension. Suture removal (days): 14 Outcome: patient tolerated procedure well with no complications Post-procedure details: sterile dressing applied and wound care instructions given Post-procedure details comment: It was emphasized to the patient to contact the office for any signs of infection, uncontrollable bleeding, or complications. Dressing type: bandage [facility] Lesion length (cm): 0.3 Lesion width (cm): 0.3 Margin per side (cm): 0.3 Total excision diameter (cm): 0.9 Informed consent: discussed and consent obtained Informed consent comment: Risks and possible complications were discussed as noted on the consent form. The consent form was signed prior to the procedure. Timeout: patient name, date of , surgical site, and procedure verified Timeout comment: Patient and provider identified site. Site was marked and excision was drawn out. Photo was taken and shown to patient, patient verified this is the correct site. Procedure prep: Patient was prepped and draped in usual sterile fashion (The planned incision lines were drawn along relaxed skin tension lines, if possible, to minimize scarring and deformity of surrounding structures.) Prep type: Chlorhexidine Anesthesia: the lesion was anesthetized in a standard fashion Anesthesia comment: The local anesthetic was injected to create a field block at the site of the procedure. Anesthetic: 1% lidocaine w/ epinephrine 1-100,000 buffered w/ 8.4% NaHCO3 Instrument used: #15 blade Instrument used comment: Incisions were made as drawn, and the surrounding tissue was undermined until the skin edges could be approximated without undue tension. Any tissue redundancies were removed. Hemostasis achieved with: electrodesiccation Additional details: Amount of lidocaine used: 4.0 ml Estimated blood loss: < 1.0 ml [facility] US RETROPERITONEAL COMPLETEo n 04-22-2024 US RETROPERITONEAL COMPLETE US RETROPERITONEAL COMPLETE ULTRASOUND RETROPERITONEUM INDICATION: Family history of polycystic kidney disease COMPARISON: 03/21/2017. FINDINGS: Ultrasound evaluation of the kidneys and bladder was performed. Right kidney: 11.3 cm in maximal length. No collecting system dilatation, calculi, or contour deforming mass lesion. Left kidney: 11.3 cm in maximal length. No collecting system dilatation, calculi, or contour deforming mass lesion. Bladder: Unremarkable fluid filled bladder. Bladder volume: 140 mL. Both ureteral jets seen. Visualized liver demonstrates increased echogenicity suggesting hepatic steatosis. IMPRESSION: 1. No acute abnormality. No stone or collecting system dilatation. No evidence of polycystic kidney disease. 2. Findings of hepatic steatosis. Finalized by John Bundy MD on 04/22/2024 3:45 PM Normal [facility] PREG QUANT HCGon 06-04-2018 HCG QUANT <2.39 Normal [facility] Comment on above: Performed By: #### P REGQNT ####[facility] [address] [place], [place] [address]Jvyyon [place] HCG RANGE SEE BELOW Normal [facility] Comment on above: Result Comment: 5-50 0-1 WEEK 40-300 1-2 WEEKS 100-1,000 2-3 WEEKS 500-6,000 3-4 WEEKS 5,000-200,000 1-2 MONTHS 10,000-100,000 2-3 MONTHS 3,000-50,000 2ND TRIMESTER 1,000-50,000 3RD TRIMESTER Performed By: #### P REGQNT ####[facility] [address] [place], [place] [address]Zhiqgb [place] ER URINE PROFILEon 8 BILIRUBIN Negative Normal NEGATIVE [facility] Comment on above: Performed By: #### E RUR ####[facility] [address] [place], [place] [address]Rlgrwx [place] BLOOD Negative Normal NEGATIVE [facility] Comment on above: Performed By: #### E RUR ####[facility] [address] [place] CLARITY CLEAR Normal [facility] Comment on above: Performed By: #### E RUR ####[facility] [address] [place] COLOR LT. YELLOW Normal YELLOW [facility] Comment on above: Performed By: #### E RUR ####[facility] [address] [place] [phone] ERUAHD A micrscopic examination will be performed if indicated. Normal [facility] Comment on above: Performed By: #### E RUR ####[facility] [address] [place] [address] [place] GLUCOSE Negative Normal NEGATIVE [facility] Comment on above: Performed By: #### E RUR ####[facility] [address] [place] [address] [place] KETONES TRACE Normal NEGATIVE [facility] Comment on above: Performed By: #### E RUR ####[facility] [address] [place] [address] [place] LEUKOCYTES Negative Normal NEGATIVE [facility] Comment on above: Performed By: #### E RUR ####[facility] [address] [place] [address] [place] NITRITE Negative Normal NEGATIVE [facility] Comment on above: Performed By: #### E RUR ####[facility] [address] [place] pH 6.0 Normal 5-9 [facility] Comment on above: Performed By: #### E RUR ####[facility] [address] [place] PROTEIN Negative Normal [facility] Comment on above: Performed By: #### E RUR ####[facility] [address] [place] SPEC GRAVITY 1.010 Normal 1.005-<=1.025 [facility] Comment on above: Performed By: #### E RUR ####[facility] [address] [place] [id number] [place] UR MICRO IND NOT INDICATED Normal [facility] Comment on above: Performed By: #### E RUR ####[facility] [address] [place] [id number] [place] UROBILINOGEN 0.2 EU/dl Normal [facility] Comment on above: Performed By: #### E RUR ####[facility] [address] [place] [id number] URon 11-27-2017 , QUAL Negative Normal NEGATIVE [facility] Comment on above: Performed By: #### P REGU ####[facility] [address] [place] [address] [place] PROF CHEM 8 (BAS METB)on Anion gap 16.5 mmol/L Normal [facility] Comment on above: Performed By: #### B CARLA, TSH ####[facility] [address] [place] [address] [place] BUN/Creatinine Ratio 18.3 mg/mg Normal [facility] Comment on above: Performed By: #### B CARLA, TSH ####[facility] [address] [place] [address] [place] Calcium 9.9 mg/dL Normal 8.4-10.2 [facility] Comment on above: Performed By: #### B CARLA, TSH ####[facility] [address] [place] [address] [place] Chloride 100 mmol/L Normal 98-107 [facility] Comment on above: Performed By: #### B CARLA, TSH ####[facility] [address] [place] [phone] [place] CO2 28.0 mmol/L Normal 22.0-30.0 [facility] Comment on above: Performed By: #### B CARLA, TSH ####[facility] [address] [place] [address] [place] Creatinine 0.74 mg/dL Normal 0.52-1.04 [facility] Comment on above: Performed By: #### B MP, TSH ####[facility] [address] [place] [id number] EGFR-AF BRAZILIAN >60 Normal >=60 [facility] Comment on above: Performed By: #### B MP, TSH ####[facility] [address] [place] [id number] EGFR-NON AF BRAZILIAN >60 Normal >=60 [facility] Comment on above: Performed By: #### B MP, TSH ####[facility] [address] [place] [id number] Glucose mass conc 93 mg/dL Normal 74-106 [facility] Comment on above: Performed By: #### B MP, TSH ####[facility] [address] [place] Potassium molar conc 3.9 mmol/L Normal 3.4-5.0 [facility] Comment on above: Performed By: #### B MP, TSH ####[facility] [address] [place] Sodium 140 mmol/L Normal 137-145 [facility] Comment on above: Performed By: #### B MP, TSH ####[facility] [address] [place], [place] [address]Ger[address] [place] Urea nitrogen 14.0 mg/dL Normal 7.0-17.0 [facility] Comment on above: Performed By: #### B MP, TSH ####[facility] [address] [place] [id number] TSHon 11-27-2017 Thyroid stimulating hormone (TSH) SEE BELOW Normal [facility] Comment on above: Result Comment: <0.3 4 UIU/ml HYPERTHYROID 0.34-5.60 UIU/ml EUTHYROID >5.60 UIU/ml HYPOTHYROID Performed By: #### B MP, TSH ####[facility] [address] [place] [address] [place] Thyroid stimulating hormone (TSH) 2.540 uIU/mL Normal 0.470-4.680 [facility] Comment on above: Performed By: #### B MP, TSH ####[facility] [address] [place] [id number] Vital Signs Date Time Vital Sign Value Performing Clinician Joaquim dennis 08-14-2024 14:45-0400 Body height 165.1 cm Tamra Goddard MD Work Phone: [facility] 08-14-2024 14:45-0400 Body mass index (BMI) [Ratio] 27.36 kg/m2 Tamra Goddard MD Work Phone: [facility] 08-14-2024 14:45-0400 Body temperature 97.2 [degF] Tamra Goddard MD Work Phone: [facility] 08-14-2024 14:45-0400 Body weight 74.57 kg Tamra Goddard MD Work Phone: [facility] 08-14-2024 14:45-0400 Diastolic blood pressure 100 mm[Hg] Tamra Goddard MD Work Phone: [facility] 08-14-2024 14:45-0400 Heart rate 80 /min Tamra Goddard MD Work Phone: [facility] 08-14-2024 14:45-0400 Systolic blood pressure 155 mm[Hg] Tamra Goddard MD Work Phone: [facility] Encounters Encounter Date Encounter Type Care Provider Facility Start: 10-03-2024 End: 10-03-2024 Refill Andres Pickens MD Work Phone: [facility] Start: 08-14-2024 End: 08-14-2024 Patient encounter procedure Tamra Goddard MD Work Phone: Plastic Surgery Comment on above: Encounter for cosmet ic surgery (Primary Dx) Start: 08-14-2024 End: 08-14-2024 ambulatory TAMRA GODDARD Facility:[facility] Start: 08-14-2024 End: 10-03-2024 Chart abstracting Tamra Goddard MD Work Phone: Plastic Surgery Comment on above: PHOTOS TAKEN Start: 07-02-2024 End: 07-02-2024 Bamboo flowsheet Lona Nguyen MD Work Phone: [facility] Start: 07-02-2024 End: 07-02-2024 Bamboo flowsheet Lona Nguyen MD Work Phone: [facility] Start: 07-02-2024 End: 07-02-2024 Patient encounter procedure Lona Nguyen MD Work Phone: [facility] Comment on above: Neoplasm of uncertai n behavior of skin of lower extremity (Primary Dx) Start: 07-02-2024 End: 07-02-2024 ambulatory LONA A PATRICK Not Available Start: 07-01-2024 End: 07-01-2024 ambulatory NATHALY JOHN Not Available Start: 07-01-2024 End: 07-01-2024 Postop follow up visit related to original px Nathaly John MD Work Phone: [facility] Comment on above: Glabellar wrinkles ( Primary Dx) Start: 06-03-2024 End: 06-03-2024 ambulatory NATHALY JOHN Not Available Start: 04-22-2024 End: 04-22-2024 ambulatory [facility] Start: 04-14-2024 End: 04-14-2024 ambulatory LONA Jones FELICITASI Not Available Start: 03-17-2024 End: 03-17-2024 ambulatory KIT KELLER Not Available Start: 11-19-2023 Refill [facility] Start: 06-04-2018 End: 06-05-2018 Patient encounter FLORY MURILLOZIO Facility: Start: 11-27-2017 End: 11-27-2017 Patient encounter NONE LISTED REQUEST Facility: Procedures Date Procedure Procedure Detail Performing Clinician Start: 07-02-2024 SKIN REPAIR Lona barker MD Work Phone: Start: 07-02-2024 SKIN EXCISION Lona hooks MD Work Phone: Start: 03-17-2024 Microscopic observat ion [Identifier] in Cervix by Cyto stain Nathaly John MD Work Phone: Start: 08-31-2023 Adult depression scr eening assessment Nicole Severino WHOLESALE REPRESENTATIVE Plan of Treatment Date Care Activity Detail Author Start: 03-17-2027 Screening for malignant neoplasm of cervix [facility] Start: 08-31-2024 Adult BMI Screening Adult BMI Screening [facility] Start: 08-31-2024 Depression Screening Depression Screening [facility] Start: 08-31-2024 Tobacco Screening Tobacco Screening [facility] Start: 07-16-2024 End: 07-16-2024 Patient encounter procedure 07/16/2024 2:30 PM EDT Office Visit [facility] [address] [place] [address] Dia Black PA [address] [place] [address] [facility] Start: 07-13-2024 Covid-19 Vaccine ( season) Covid-19 Vaccine ( season) [facility] Start: 07-13-2024 Influenza vaccination [facility] Start: 07-02-2024 End: 07-02-2024 Patient encounter procedure [facility] Comment on above: Arrived Start: 07-13-2023 Influenza vaccination Influenza Vaccine [facility] Start: 2019 Screening for malignant neoplasm of cervix HPV/[facility] Start: 2010 Screening for malignant neoplasm of cervix [facility] Start: 2008 Hepatitis B Vaccine (1 of 3 - 19+ 3-dose series) Hepatitis B Vaccine (1 of 3 - 19+ 3-dose series) [facility] Start: 2007 Adult BMI Follow Up Plan Adult BMI Follow Up Plan [facility] Start: 2007 Annual PCP Team Chronic Disease Visit Annual PCP Team Chronic Disease Visit [facility] Start: 2007 Anxiety Screening Anxiety Screening [facility] Start: 2007 BP Controlled (<130/80) BP Controlled (<130/80) [facility] Start: 2007 Depression Screening Depression Screening [facility] Start: 2007 Hepatitis C screening Hepatitis C Screening [facility] Start: 2007 HIV screening HIV Screening [facility] Start: 2000 DTaP,Tdap and Td Vaccines (5 - Tdap) DTaP,Tdap and Td Vaccines (5 - Tdap) [facility] Start: 2000 Urine microalbumin profile DTaP,Tdap,Td Vaccine (5 - Tdap) [facility] Dermatopathology exam Dermatopat hology exam Pathology and Cytology Timed Neoplasm of uncertain behavior of skin of lower extremity Release Upon Ordering for 1 Occurrences starting 07/02/2024 [facility] [employer] Work Phone: Comment on above: Release Upon Ordering for 1 Occurrences starting 07/02/2024 Immunizations Immunization Date Immunization Notes Care Provider Fa patti 02-28-2001 measles, mumps and rubella virus vaccine Nicole Severino [facility] 02-28-2001 poliovirus vaccine, inactivated Nicole Severino [facility] 05-03-1992 diphtheria, tetanus toxoids and pertussis vaccine Nicole Severino [facility] 05-03-1992 haemophilus influenz ae type b vaccine, conjugate unspecified formulation Nicole Severino [facility] 05-03-1992 trivalent poliovirus vaccine, live, oral Nicole Severino [facility] 12-23-1990 diphtheria, tetanus toxoids and pertussis vaccine Nicole Severino [facility] 12-23-1990 measles, mumps and rubella virus vaccine Nicole Severino [facility] 1989 diphtheria, tetanus toxoids and pertussis vaccine Nicole Severino [facility] 1989 trivalent poliovirus vaccine, live, oral Nicole Severino [facility] 1989 diphtheria, tetanus toxoids and pertussis vaccine Nicole Severino [facility] 1989 trivalent poliovirus vaccine, live, oral Nicole Severino [facility] Payers Date Payer Category Payer [employer]aged [employer] - PPO ANTHEM [id number] 2021 Unknown [id number] 2021 Unknown [id number] 1989 Unknown [id number] 1989 Unknown [id number] .[id number] 1989 Unknown [id number] .2.9 1989 Unknown [id number] .2.9 1989 Unknown [id number] .2.9 1989 Unknown [id number] 1959 Private Health Insurance [id number] Social History Date Type Detail Facility Start: 07-23-2019 End: 03-17-2024 Tobacco smoking status NEIS Never smoked tobacco [facility] Start: 07-23-2019 End: 03-17-2024 Tobacco use and exposure Smokeless tobacco non-user [facility] Start: 08-31-2023 End: 07-02-2024 Alcohol intake Current drinker of alcohol (finding) [facility] Start: 08-31-2023 End: 05-20-2024 History of Social function [facility] Start: 08-31-2023 End: 05-20-2024 Tobacco use panel [facility] Adolescent depressio n screening assessment 0 [facility] Start: 07-23-2019 Alcohol Comment every Sat. & sometimes during week [facility] Start: 1990 Sex Assigned At Not on file [facility] Start: 08-14-2024 Alcohol Comment social [facility] Start: 1990 Sex assigned at Female [facility] Start: 06-17-2015 Sex Female (finding) [facility] Start: 04-22-2024 Gender identity Identifies as female gender (finding) [facility] Do you belong to any clubs or organizations such as mormonism groups, unions, fraternal or athletic groups, or school groups? No [facility] Are you now , , , , never or living with a partner? [facility] How often to you hav e a drink containing alcohol? 2-3 time sa week [facility] How many standard dr inks containing alcohol do you have on a typical day? 5 or 6 [facility] How often do you hav e 6 or more drinks on 1 occasion? Weekly [facility] Do you feel stress - tense, restless, nervous, or anxious, or unable to sleep at night because your mind is troubled all the time - these days [OSQ] To some extent [facility] (I/We) worried fredo er (my/our) food would run out before (I/we) got money to buy more. Never true [facility] Start: 03-17-2024 Alcohol Comment once a week- beer [facility] Clinical Notes 11-19-2023 to 10-03-2024 Telephone Encounter - Nicole Severino CMA - 10/03/2024 12:41 AM ESTTelephone Encounter - Nicole Severino CMA - 10/03/2024 12:[address] - 08/14/2024 3:28 PM EDT Note Date & Type Note Facility 10-03-2024 Miscellaneous Notes Refill request documented in this encounter [facility] 10-03-2024 Telephone encounter Note Refill request [facility] 08-14-2024 Note HNO ID: [id number] Author: ISABEL SNYDER ST Service: ? Author Type: Surg Stack Supervisor Type: Progress Notes Filed: 08/14/2024 15:28 Note Text: DATE OF PHOTOS: 08/14/2024 Body Part: Breasts ST ASTRID August 14, 2024 3:28 PM [facility] 08-14-2024 History of Present illness Narrative DATE OF PHOTOS: 08/14/2024 Body Part: Breasts ST ASTRID August 14, 2024 3:28 PM documented in this encounter [facility] 08-11-2024 Note HNO ID: [id number] Author: TAMRA GODDARD MD Service: ? Author Type: Physician Type: Progress Notes Filed: 08/24/2024 22:19 Note Text: CC: BREAST AUGMENTATION EVALUATION HPI: Melly Savage is a 34 year old that presents today for breast augmentation evaluation. Pt c/o saggy breasts and decreased fullness of bilateral breasts Prior breast surgeries: denies PAIN: denies BRA SIZE: C DESIRED SIZE: happy with size but would like to be lifted and amin Prior treatment / other provider: denies OB HISTORY: PARA:2 : Patient did breastfeed: length of time 6-9 months Plan for future pregnancies: No Hx of breast disease: No patient history of previous breast disease Prior Mammogram: No Family Hx of breast cancer: No family history of breast cancer PMH: No past medical history on file. Hypertension (takes losartan) and Polycystic ovaries She is taking Wegovy for weight loss, states she would like to lose 20-30 more lbs PSH: No past surgical history on file. Meds: No current outpatient medications on file prior to visit. No current facility-administered medications on file prior to visit. 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 Breast Exam: Asymmetry: left nipple lower than right Masses: no Axillary Lymphadenopathy: no Scars: no Shoulder position: Right is level with the left Note: measurements are in centimeters SN to NIPPLE: R: 24.5 L: 26.5 WIDTH: R: 15 L: 15 IMF to NIPPLE: R: 9.5 L: 9 Ptosis: R: Grade II L: Grade II Medially displaced nipple: None Assessment: The patient is a adequate candidate for breast augmentation. She will also possibly need mastopexy as well. Photographs have been taken for planning purposes. Plan: -Blood pressure would need to be adequately managed prior to surgery, follows with her primary care provider -Recommended lab work for nutrition through primary care provider since patient is attempting weight loss and taking Wegovy -Discussed patient will likely achieve a better cosmetic result once she reaches her weight loss goal. Advised that patient reach weight loss goal prior to proceeding with surgery -Discussed benefits and risks between saline and silicone implants -Quote provided for $7,840 for breast augmentation with silicone implants only, quote provided for breast augmentation with silicone implants and bilateral mastopexy $8,860 Planned procedure: bilateral breast augmentation with implants, possible mastopexy; I have discussed the procedure in detail with the patient and she agrees to the procedure understanding the roles and tasks of the personnel to be involved; the alternatives to the procedure to include observation. She understands the risks to include but not be limited to infection, bleeding, pain, scar, need for re-operation, recurrence, asymmetry, loss of nipple, loss of nipple height, nipple sensation change, silicone implant rupture/capsule/mass effect/mammographic changes/wrinkles, inability to breast feed, poor aesthetic results and anesthetic/perioperative complications (DVT, PE, UT, and ). The patient agrees and consents to the procedure attesting to her understanding. Follow up in October 2024 or November 2024 The patient is seen and examined by Tamra Goddard M.D. and the following reflects his service. Scribed by Ina Kee RN I agree with the Chief Complaint, ROS, and Past Histories independently gathered by the clinical manager sales support and the remaining scribed note accurately describes my personal service to the patient. patient's condition reviewed and examined plan of care and options of management, complexity, risk benefit limitation potential complication, success /failure of management, expected result and recovery discussed I spent a total of 30 minutes on the date of service which included preparing to see the patient, [id number] patient care, completing clinical documentation, obtaining AND reviewing separately an obtained history, performing a medically appropriate examination, counseling AND educating the patient/family/caregiver, ordering medications, tests, or procedures, communicating with other healthcare providers, independently interpreting the results, communicating results to the patient care team, and continued patient care coordination. This is included in the documentation noted above. Tamra Goddard MD [facility] 08-11-2024 History of Present illness Narrative Images from the original note were not included. CC: BREAST AUGMENTATION EVALUATION HPI: Melly Savage is a 34 year old that presents today for breast augmentation evaluation. Pt c/o saggy breasts and decreased fullness of bilateral breasts Prior breast surgeries: denies PAIN: denies BRA SIZE: C DESIRED SIZE: happy with size but would like to be lifted and amin Prior treatment / other provider: denies OB HISTORY: PARA:2 : Patient did breastfeed: length of time 6-9 months Plan for future pregnancies: No Hx of breast disease: No patient history of previous breast disease Prior Mammogram: No Family Hx of breast cancer: No family history of breast cancer PMH: No past medical history on file. Hypertension (takes losartan) and Polycystic ovaries She is taking Wegovy for weight loss, states she would like to lose 20-30 more lbs PSH: No past surgical history on file. Meds: No current outpatient medications on file prior to visit. No current facility-administered medications on file prior to visit. 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 Breast Exam: Asymmetry: left nipple lower than right Masses: no Axillary Lymphadenopathy: no Scars: no Shoulder position: Right is level with the left Note: measurements are in centimeters SN to NIPPLE: R: 24.5 L: 26.5 WIDTH: R: 15 L: 15 IMF to NIPPLE: R: 9.5 L: 9 Ptosis: R: Grade II L: Grade II Medially displaced nipple: None Assessment: The patient is a adequate candidate for breast augmentation. She will also possibly need mastopexy as well. Photographs have been taken for planning purposes. Plan: -Blood pressure would need to be adequately managed prior to surgery, follows with her primary care provider -Recommended lab work for nutrition through primary care provider since patient is attempting weight loss and taking Wegovy -Discussed patient will likely achieve a better cosmetic result once she reaches her weight loss goal. Advised that patient reach weight loss goal prior to proceeding with surgery -Discussed benefits and risks between saline and silicone implants -Quote provided for $7,840 for breast augmentation with silicone implants only, quote provided for breast augmentation with silicone implants and bilateral mastopexy $8,860 Planned procedure: bilateral breast augmentation with implants, possible mastopexy; I have discussed the procedure in detail with the patient and she agrees to the procedure understanding the roles and tasks of the personnel to be involved; the alternatives to the procedure to include observation. She understands the risks to include but not be limited to infection, bleeding, pain, scar, need for re-operation, recurrence, asymmetry, loss of nipple, loss of nipple height, nipple sensation change, silicone implant rupture/capsule/mass effect/mammographic changes/wrinkles, inability to breast feed, poor aesthetic results and anesthetic/perioperative complications (DVT, PE, UT, and ). The patient agrees and consents to the procedure attesting to her understanding. Follow up in October 2024 or November 2024 The patient is seen and examined by Tamra Goddard M.D. and the following reflects his service. Scribed by Ina Kee RN I agree with the Chief Complaint, ROS, and Past Histories independently gathered by the clinical manager sales support and the remaining scribed note accurately describes my personal service to the patient. patient's condition reviewed and examined plan of care and options of management, complexity, risk benefit limitation potential complication, success /failure of management, expected result and recovery discussed I spent a total of 30 minutes on the date of service which included preparing to see the patient, [id number] patient care, completing clinical documentation, obtaining & reviewing separately an obtained history, performing a medically appropriate examination, counseling & educating the patient/family/caregiver, ordering medications, tests, or procedures, communicating with other healthcare providers, independently interpreting the results, communicating results to the patient care team, and continued patient care coordination. This is included in the documentation noted above. Tamra Goddard MD documented in this encounter [facility] 07-02-2024 History of Present illness Narrative Images from the original note were not included. Subjective Melly Savage is a 34 y.o. female who presents for the following: Excision. Location: right lower leg Date of biopsy: 04/14/2024 Diagnosis: Severely atypical nevus Pre-Op Checklist: History of pacemaker/defibrillator: No History of joint replacement in the past 2 years: No History of HIV/Hepatitis B/Hepatitis C: No Latex allergy: No Is the patient currently on a blood thinner? No. All pertinent medical history, medications, and allergies were reviewed. Surgical assistants: URVASHI Bardales, BOB Guzman Objective Well appearing patient in no apparent distress; mood and affect are within normal limits. 1. Neoplasm of uncertain behavior of skin of lower extremity right lower leg Erythematous macule at the biopsy site. Skin excision Lesion length (cm): 0.3 Lesion width (cm): 0.3 Margin per side (cm): 0.3 Total excision diameter (cm): 0.9 Informed consent: discussed and consent obtained Informed consent comment: Risks and possible complications were discussed as noted on the consent form. The consent form was signed prior to the procedure. Timeout: patient name, date of , surgical site, and procedure verified Timeout comment: Patient and provider identified site. Site was marked and excision was drawn out. Photo was taken and shown to patient, patient verified this is the correct site. Procedure prep: Patient was prepped and draped in usual sterile fashion (The planned incision lines were drawn along relaxed skin tension lines, if possible, to minimize scarring and deformity of surrounding structures.) Prep type: Chlorhexidine Anesthesia: the lesion was anesthetized in a standard fashion Anesthesia comment: The local anesthetic was injected to create a field block at the site of the procedure. Anesthetic: 1% lidocaine w/ epinephrine 1-100,000 buffered w/ 8.4% NaHCO3 Instrument used: #15 blade Instrument used comment: Incisions were made as drawn, and the surrounding tissue was undermined until the skin edges could be approximated without undue tension. Any tissue redundancies were removed. Hemostasis achieved with: electrodesiccation Additional details: Amount of lidocaine used: 4.0 ml Estimated blood loss: < 1.0 ml Skin repair Complexity: Intermediate Final length (cm): 2.1 Reason for type of repair: allow closure of the large defect Undermining: edges undermined Undermining comment: The surrounding tissue was undermined until the skin edges could be approximated without undue tension. Any tissue redundancies were removed. Subcutaneous layers (deep stitches): Suture size: 3-0 Suture type comment: Biosyn Stitches: Buried horizontal mattress (Closure was performed in a layered fashion with subcutaneous tissue closed first using tension-bearing absorbable sutures to the level of the superficial fascia.) Fine/surface layer approximation (top stitches): Suture size: 4-0 Suture type: Prolene (polypropylene) Stitches: simple running Stitches comment: Epicuticular skin sutures were then placed with minimal tension. Suture removal (days): 14 Outcome: patient tolerated procedure well with no complications Post-procedure details: sterile dressing applied and wound care instructions given Post-procedure details comment: It was emphasized to the patient to contact the office for any signs of infection, uncontrollable bleeding, or complications. Dressing type: bandage Specimen A - Dermatopathology exam Differential Diagnosis: Moderate to severe atypia Check Margins: yes Previous accession number: [id number] Excision today. See operative report. Return to clinic prior to next scheduled visit for any signs or symptoms of recurrence, reviewed the signs and symptoms. Follow up: 14 days for s/r documented in this encounter [facility] 07-01-2024 History of Present illness Narrative Melly Savage is a 34 y.o. female presents with chief complaint of HPI: HPI History of Present Illness SUBJECTIVE: MEDICATIONS: Current Outpatient Medications Medication Instructions losartan (COZAAR) 50 mg, Oral, Daily metFORMIN XR (GLUCOPHAGE-XR) 500 mg, Oral, Daily with evening meal, Do not crush, chew, or split. 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 Assessment & Plan documented in this encounter [facility] 11-19-2023 Miscellaneous Notes Refill request, patient changed pharmacy documented in this encounter [facility] 11-19-2023 Telephone encounter Note Refill request, patient changed pharmacy [facility] Evaluation note Diagnosis Encounter for cosmetic surgery- Primary Other plastic surgery for unacceptable cosmetic appearance [facility] Diagnosis Glabellar wrinkles- Primary Other specified hypertrophic and atrophic condition of skin [facility] Neoplasm of uncertain behavior of skin of lower extremity- Primary [facility]ructions[facility]ocumented [facility] Purpose Family History No Family History Records FoundNo Family History Records FoundNo Family History Records FoundNo Family History Records Found Advance Directives No Advanced Directives Records FoundNo Advanced Directives Records FoundNo Advanced Directives Records FoundNo Advanced Directives Records Found Additional Source Comments INFORMATION SOURCE (unrecogn ized section and content) DATE CREATED AUTHOR 06/05/2018 [facility] DATE CREATED AUTHOR AUTHOR'S ORGANIZ ATION 04/23/2024 [facility] DATE CREATED AUTHOR AUTHOR'S ORGANIZ ATION 07/02/2024 [facility] EP[facility] DATE CREATED AUTHOR AUTHOR'S ORGANIZ ATION 08/26/2024 [facility] Reason for Visit (unrecogniz ed section and content) Reason Onset Date Comments Med Refill 11/19/2023 Reason Comments PHOTOS TAKEN Reason Comments Consult Reason Comments Med Refill Reason Comments Excision Care Teams (unrecognized sec tion and content) Information Systems Security Analyst Relationship Specialty Start Date End Date Andres Pickens MD [address] [place] [address], [address] [place] [address] PCP - General Pediatrics 03/16/17 Information Systems Security Analyst Relationship Specialty Start Date End Date Andres Pickens MD [address] [place] [address], [address] [place] [address] PCP - General Pediatrics 03/16/17 Information Systems Security Analyst Relationship Specialty Start Date End Date Nathaly John MD [address] [place] [address] PCP - General Family Medicine 06/03/24 Information Systems Security Analyst Relationship Specialty Start Date End Date Nathaly John MD [address] [facility] [place] [address] PCP - General Family Medicine 06/03/24 Information Systems Security Analyst Relationship Specialty Start Date End Date Nathaly John MD [address] [facility] [place] [address] PCP - General Family Medicine 06/03/24 Source Comments (unrecognize d section and content) In the event this informatio n is protected by the Federal Confidentiality of Alcohol and Drug Abuse Patient Records regulations: The Federal rules restrict any use of the information to criminally investigate or prosecute any alcohol or drug abuse patient.[facility] the event this information is protected by the Federal Confidentiality of Alcohol and Drug Abuse Patient Records regulations: The Federal rules restrict any use of the information to criminally investigate or prosecute any alcohol or drug abuse patient.[facility] FOR RECORDS PERTAINING TO PATIENTS WHO ARE [...] BE BASED ON THE PRIMARY CLINICAL RECORDS. [employer] [facility]. provides no warranty or guarantee of the accuracy or completeness of information in this document.
[2024-11-24 13:52] VITALS: PULSE 73
--- NOTE | 2024-11-24 14:26 | ECG_ITS ---
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
--- NOTE | 2024-11-24 15:03 | ED_ITS ---
HPI HPI - General Adult General Chief complaint: Chest Pain Stated complaint: CHEST FEELS HEAVY & TIGHT FOR A COUPLE OF DAYS, PA Time Seen by Provider: 11/24/24 15:03 Source: patient Mode of arrival: walk-in History of Present Illness HPI narrative: 34 year old female presents to the ED for chest discomfort. Onset was yesterday upon waking. It has been intermittent. At times it radiates to her jaw with inspiration. Also reports episodes of lightheadedness for several days. Denies fever, chills, cough. Reports right ear fullness, rhinorrhea. Denies SOB, AWAD, vision changes. Denies abd pain, N/V/D. Related Data Home Medications ?Medication ?Instructions ?Recorded ?Confirmed losartan 50 mg tablet mg 11/24/24 semaglutide (weight loss) 0.25 mg subcut 11/24/24 mg/0.5 mL subcutaneous pen injector (Wegovy) Allergies Allergy/AdvReac Type Severity Reaction Status Date / Time No Known Drug Allergies Allergy Verified 11/24/24 13:41 Opioid HPI Opioid Management Most Recent Opioid Data: No Data to Display Review of Systems ROS Constitutional Denies: fever or chills Eyes Denies: change in vision Ears, nose, mouth, and throat Reports: ear pain and nasal discharge; Denies: neck pain, difficulty swallowing, ear discharge or nasal congestion Cardiovascular Reports: chest pain and lightheadedness; Denies: palpitations, edema or swelling of feet/ankles Respiratory Denies: shortness of breath or cough Gastrointestinal Denies: abdominal pain, nausea, vomiting or diarrhea Genitourinary Denies: painful urination Musculoskeletal Denies: back pain or neck pain Integumentary/Breast Denies: rash Neurological Denies: headache, numbness in extremities, weakness in extremities or dizziness PFSH PFSH Social History Little interest or pleasure in doing things: not at all Feeling down, depressed, or hopeless: not at all Exam Constitutional Vital Signs, click to edit/add: Last Vital Signs Temp 97.9 F 11/24/24 13:41 Pulse 66 11/24/24 13:41 Resp 16 11/24/24 13:41 BP 126/85 11/24/24 13:41 Pulse Ox 98 11/24/24 13:41 O2 Del Method Room Air 11/24/24 13:41 Common normals: no apparent distress and oriented x3 General appearance: cooperative; not ill appearing [facility] Common normals: normocephalic Face and sinus: normal facial exam Nose: external nose normal External ear: external ears normal External auditory canal: EACs normal Tympanic membrane: TMs normal bilaterally Mouth: oral and palatal mucosa normal, lip normal and tongue normal; no drooling Throat: posterior oropharynx normal and uvula midline Eye Common normals: PERRL, EOMs intact bilaterally, conjunctivae normal and no scleral icterus Neck & C-Spine Common normals: supple Chest Common normals: inspection of chest normal Chest: symmetrical chest wall rise Respiratory Common normals: normal respiratory effort and clear to auscultation bilaterally Effort & inspection: able to speak in complete sentences and symmetric chest movement Cardio Common normals: regular rate and regular rhythm Neuro Common normals: oriented x3, CN's II-XII intact bilaterally, moves all extremities and no focal motor deficits Sensorium/orientation: awake and alert Speech: speech normal Gait (neuro): normal gait Course Vital Signs Vital signs: Vital Signs Temperature 97.9 F 11/24/24 13:41 Pulse Rate 66 11/24/24 13:41 Respiratory Rate 16 11/24/24 13:41 Blood Pressure 126/85 11/24/24 13:41 Pulse Oximetry 98 11/24/24 13:41 Oxygen Delivery Method Room Air 11/24/24 13:41 Temperature 97.9 F 11/24/24 13:41 Pulse Rate 66 11/24/24 13:41 Respiratory Rate 16 11/24/24 13:41 Blood Pressure 126/85 11/24/24 13:41 Pulse Oximetry 98 11/24/24 13:41 Oxygen Delivery Method Room Air 11/24/24 13:41 Medical Decision Making [facility] Narrative Medical decision making narrative: Laboratory studies were unremarkable. Imaging showed no CT evidence for pulmonary embolism or other acute pulmonary process. Findings were discussed with the patient. Chest wall pain was discussed. Viral illness was discussed. Follow up with pcp for a recheck, further evaluation and treatment. Return precautions were discussed. She declined medication for discomfort for home; she is going to take OTC medication as directed. Medical Records Medical records reviewed: Yes I reviewed the patient's medical records Lab Data Lab results reviewed: Yes I reviewed the patient's lab results Labs: Lab Results 11/24/24 Range/Units 15:15 WBC 4.4 (4.0-11.0) 10^3/uL RBC 4.46 (4.20-5.40) 10^6/uL Hgb 13.7 (12.0-16.0) g/dL Hct 41.4 (36.0-48.0) % MCV 92.8 (81.0-99.0) fL MCH 30.7 (26.7-34.0) pg MCHC 33.1 (29.9-35.2) g/dL RDW 12.4 (11.0-15.0) % Plt Count 234 (150-450) 10^3/uL MPV 10.2 (9.5-13.5) fL Neut % (Auto) 61.8 (43.0-75.0) % Lymph % (Auto) 29.6 (20.5-60.0) % Becker % (Auto) 7.0 (1.7-12.0) % Eos % (Auto) 0.5 L (0.9-7.0) % Baso % (Auto) 0.9 (0.2-2.0) % Neut # (Auto) 2.7 (1.4-6.5) 10^3/uL Lymph # (Auto) 1.3 (1.2-3.8) 10^3/uL Becker # (Auto) 0.3 (0.3-0.8) 10^3/uL Eos # (Auto) 0.0 (0.0-0.7) 10^3/uL Baso # (Auto) 0.0 (0.0-0.1) 10^3/uL Abs Immat Gran (auto) 0.01 (0.00-0.03) 10^3/uL Imm/Tot Granulo (auto) 0.2 (0.0-0.5) % D-Dimer <0.19 (<=0.59) mg/L FEU Sodium 142 (136-145) mmol/L Potassium 3.6 (3.5-5.1) mmol/L Chloride 103 (98-107) mmol/L Carbon Dioxide 29.6 (21.0-32.0) mmol/L Anion Gap 13.0 BUN 13.0 (7.0-18.0) mg/dL Creatinine 0.80 (0.55-1.02) mg/dL Est GFR ( Amer) >60 (>=60 mL/min/1.73m^2) Est GFR (Non-Af Amer) >60 (>=60 mL/min/1.73m^2) BUN/Creatinine Ratio 16.2 Glucose 84 (74-106) mg/dL Calcium 9.3 (8.5-10.1) mg/dL Total Bilirubin 0.3 (0.2-1.0) mg/dL AST 15 (15-37) U/L ALT 19 (14-59) U/L Alkaline Phosphatase 37 L (46-116) U/L Troponin I High Sens <4.0 L (4.0-51.3) pg/mL Total Protein 7.3 (6.4-8.2) g/dL Albumin 4.0 (3.4-5.0) g/dL Globulin 3.3 g/dL Albumin/Globulin Ratio 1.[address] scan - chest: Attestation: I have reviewed the pertinent imaging results. Radiologist's impression: ITS Impressions Chest X-Ray 11/24/24 15:28 Impression: No radiographic evidence of acute cardiopulmonary process. Electronically authenticated by: BENNY OSCAR Date: 11/24/2024 15:54 Chest CTA 11/24/24 17:30 IMPRESSION: No CT evidence for pulmonary embolism or other acute pulmonary process. Electronically authenticated by: CHERYL COLBERT Date: 11/24/2024 19:06 ECG Data Interpretation: Measurements Intervals Mullens Rate: 65 P: 63 NH: 116 QRS: 77 QRSD: 86 T: 61 QT: 358 QTc: 370 Interpretive Statements 1100 Sinus rhythm 2210 Short NH interval 9150 abnormal ECG No previous ECG available for comparison Discharge Plan Discharge Chief Complaint: Chest Pain Clinical Impression: Atypical chest pain Patient Disposition: Home, Self-Care Time of Disposition Decision: 19:12 Condition: Good Mode of Transportation: Private Vehicle Prescriptions / Home Meds: No Action losartan 50 mg tablet Wegovy 0.25 mg/0.5 mL pen injector SUBCUT Print Language: Kenyan Instructions: Chest Pain (ED), Chest Wall Pain (ED) Additional Instructions: Return to the ER for worsening symptoms. Referrals: ANDRES PICKENS [Primary Care Provider] - 1 week
--- NOTE | 2024-11-24 15:13 | PC.NURSE ---
EKG completed in triage by ceramist
[2024-11-24 15:28] LABS: Basophils Percent Auto 0.9 % (0.2-2.0); Eosinophils Percent Auto 0.5 % (0.9-7.0); Hematocrit 41.4 % (36.0-48.0); Hemoglobin 13.7 g/dL (12.0-16.0); Immature Granulocytes Abs Auto 0.01 10^3/uL (0.00-0.03); Immature Granulocytes Pct Auto 0.2 % (0.0-0.5); Lymphocytes Absolute Auto 1.3 10^3/uL (1.2-3.8); Lymphocytes Percent Auto 29.6 % (20.5-60.0); Mean Corpuscular HGB Conc 33.1 g/dL (29.9-35.2); Mean Corpuscular Hemoglobin 30.7 pg (26.7-34.0); Mean Corpuscular Volume 92.8 fL (81.0-99.0); Mean Platelet Volume 10.2 fL (9.5-13.5); Monocytes Absolute Auto 0.3 10^3/uL (0.3-0.8); Neutrophils Absolute Auto 2.7 10^3/uL (1.4-6.5); Neutrophils Percent Auto 61.8 % (43.0-75.0); Platelet Count 234 10^3/uL (150-450); Red Blood Count 4.46 10^6/uL (4.20-5.40); Red Cell Distribution Width 12.4 % (11.0-15.0); White Blood Count 4.4 10^3/uL (4.0-11.0)
--- NOTE | 2024-11-24 15:28 | XR_ITS ---
The [address] [address] Patient Name: MELLY SAVAGE MRN: [id number] date: 1990 Sex: F Assigned Patient Location: ER Current Patient Location: ED.MAIN Accession/Order Number: [id number] Exam Date: 11/24/2024 15:20 Report Date: 11/24/2024 15:54 At the request of: PATRICIA JANE Procedure: XR chest 1V EXAM: XR chest 1V HISTORY: CP COMPARISON: None. TECHNIQUE: Chest X-ray AP, 1 view FINDINGS: Support devices: None. Lungs/pleura: No consolidation, effusion, or pneumothorax. Heart and mediastinum: Normal contours. Bones: No acute abnormality identified. XR/XR chest 1V Impression: No radiographic evidence of acute cardiopulmonary process. Electronically authenticated by: BENNY OSCAR Date: 11/24/2024 15:54
[2024-11-24 15:48] LABS: Alanine Aminotransferase 19 U/L (14-59); Albumin Globulin Ratio 1.2; Alkaline Phosphatase 37 U/L (46-116); Aspartate Amino Transferase 15 U/L (15-37); BUN Creatinine Ratio 16.2; Bilirubin Total 0.3 mg/dL (0.2-1.0); Calcium 9.3 mg/dL (8.5-10.1); Carbon Dioxide 29.6 mmol/L (21.0-32.0); Chloride 103 mmol/L (98-107); Estimated GFR (African America >60 (>=60 mL/min/1.73m^2); Estimated GFR (Non-African Ame >60 (>=60 mL/min/1.73m^2); Globulin 3.3 g/dL; Glucose 84 mg/dL (74-106); Potassium 3.6 mmol/L (3.5-5.1); Sodium 142 mmol/L (136-145); Total Protein 7.3 g/dL (6.4-8.2)
[2024-11-24 15:51] LABS: Troponin I High Sensitivity <4.0 pg/mL (4.0-51.3)
--- NOTE | 2024-11-24 17:30 | CT_ITS ---
The [address] [address] Patient Name: MELLY SAVAGE MRN: [id number] date: 1990 Sex: F Assigned Patient Location: ER Current Patient Location: ER Accession/Order Number: [id number] Exam Date: 11/24/2024 17:20 Report Date: 11/24/2024 19:06 At the request of: PATRICIA JANE Procedure: CT angio chest EXAM: CT angio chest HISTORY: CP COMPARISON: None. TECHNIQUE: CT angiogram of the chest is performed following rapid IV contrast administration. FINDINGS: There is adequate contrast opacification of the pulmonary arteries without evidence for abrupt cut off or significant filling defect to suggest CT evidence for pulmonary embolism. The pulmonary arteries are normal in caliber. The thoracic aorta is normal in course, caliber and contrast enhancement. There is no evidence for thoracic aortic aneurysm or dissection. The heart size is normal. There is no evidence for pericardial effusion. No significant coronary arterial calcification is seen. There is no evidence for pleural effusion or pneumothorax. No significant enlarged hilar, mediastinal or axillary adenopathy seen. The lungs appear clear. No focal consolidation is seen. The visualized chest wall appears unremarkable. No acute abnormality seen in the visualized upper abdomen. No destructive osseous lesion is seen. CT/CT angio chest IMPRESSION: No CT evidence for pulmonary embolism or other acute pulmonary process. Electronically authenticated by: CHERYL COLBERT Date: 11/24/2024 19:06
[2024-11-24 17:55] LABS: D Dimer <0.19 mg/L FEU (<=0.59)
[2024-11-24 19:32] VITALS: BP 124/80; PULSE 88; O2SAT 99
== END 2024-11-24 19:33 | disposition home or self-care (01) ==
PROVIDERS: Nurse Practitioner Family; Emergency Provider Emergency Medicine; PCP Internal Medicine
DX: R07.89 Other chest pain (principal)
CPT/HCPCS: 36415; 71045; 71275; 80053; 84484; 85025; 85378; 93005; 99285; Q9967

== ENCOUNTER 2025-01-06 15:09 | Outpatient (OUT) | payer BC, SELFPAY ==
[2025-01-06 15:28] LABS: Bilirubin Urine NEGATIVE (NEGATIVE); Blood Urine NEGATIVE (NEGATIVE); Clarity Urine CLEAR (CLEAR); Color Urine LT. YELLOW (YELLOW); Glucose Urine UA NEGATIVE (NEGATIVE); Ketones Urine NEGATIVE (NEGATIVE); Leukocyte Esterase Urine TRACE (NEGATIVE); Nitrite Urine NEGATIVE (NEGATIVE); Protein Urine NEGATIVE (NEG/TRACE); Specific Gravity Urine <=1.005 (1.005-1.025); Urobilinogen Urine 0.2 EU/dL (0.2-1.0); pH Urine 5.5 (5.0-9.0)
[2025-01-06 15:35] LABS: Bacteria Urine TRACE #/HPF (NONE SEEN); Cast Seen? NONE SEEN #/LPF (NONE SEEN); Crystals Seen? None Seen #/HPF (None Seen); Mucus Urine NONE SEEN (NONE SEEN); RBC Urine 0-2 #/HPF (0-2); Squamous Epithelial Cell Urine RARE #/LPF (NONE/RARE); WBC Urine 0-2 #/HPF (NONE SEEN)
== END 2025-01-06 15:10 | disposition home or self-care (01) ==
LOC: LAB 15:13
DX: Z01.818 Encounter for other preprocedural examination (principal)
CPT/HCPCS: 81001

== ENCOUNTER 2025-10-12 16:57 | Outpatient (OUT) | payer BC, SELFPAY ==
--- OUTSIDE RECORDS SUMMARY | 2025-10-12 17:03 | XMS_ITS | Encounter Summary ---
Author Organization [facility] Address [address] [facility] [place] [address] Care Team Providers Care Bar Finish Operator Name Role Phone Nathaly John MD Primary Care Provider [phone] Encounter Details DateTypeDepartmentCare Team (Latest Contact Info)Iwrysvlraom79/01/2025Telephone [facility] [address] [place] [address] [place] [address] Keily DavilaOTISCO, MA Social History Tobacco UseTypesPacks/DayYears UsedDateSmoking Tobacco: NeverSmokeless Tobacco: NeverAlcohol UseStandard Drinks/WeekCommentsYes0 (1 standard drink = 0.6 oz pure alcohol)once a week- [id number] Health LiteracyAnswerDate RecordedHow often do you need to have someone help you when you read instructions, pamphlets, or other written material from your doctor or pharmacy?Never05/20/2024Social Connection and Isolation PanelAnswerDate RecordedIn a typical week, how many times do you talk on the phone with family, friends, or neighbors?Once a week 05/20/2024How often do you get together with friends or relatives?Once a week 05/20/2024How often do you attend jewish or faith services?1 to 4 times per year05/20/2024o you belong to any clubs or organizations such as jewish groups, unions, fraternal or athletic groups, or school groups?No05/20/2024How often do you attend meetings of the clubs or organizations you belong to?Never05/20/2024 Are you , , , , never , or living with a partner?Ylsoesz9305/20/2024UDIT-CAnswerDate RecordedQ1: How often do you have a drink containing alcohol?2-3 times a week05/20/2024Q2: How many drinks containing alcohol do you have on a typical day when you are drinking?5 or 6 05/20/2024Q3: How often do you have six or more drinks on one occasion?Weekly 05/20/2024Overall Financial Resource Strain (CARDIA)AnswerDate RecordedHow hard is it for you to pay for the very basics like food, housing, medical care, and heating?Not hard at all05/20/2024[facility] - Occupational Stress QuestionnaireAnswerDate RecordedDo you feel stress - tense, restless, nervous, or anxious, or unable to sleep at night because yourmind is troubled all the time - these days?To some ciysmt5905/20/2024Exercise Vital Sign AnswerDate RecordedOn average, how many days per week do you engage in moderate to strenuous exercise (like a brisk walk)?3 days05/20/2024On average, how many minutes do you engage in exercise at this level?20 min05/20/2024Hunger Vital SignAnswerDate RecordedWithin the past 12 months, you worried that your food would run out before you got the money to buymore.Never true05/20/2024Within the past 12 months, the food you bought just didn't last and you didn't have money to get more.Never true05/20/2024RAPARE - TransportationAnswerDate RecordedIn the past 12 months, has lack of transportation kept you from medical appointments or from getting medications?No05/20/2024In the past 12 months, has lack of transportation kept you from meetings, work, or from getting things needed for daily living?No05/20/2024Housing Stability Vital SignAnswerDate RecordedIn the last 12 months, was there a time when you were not able to pay the mortgage or rent on time?No05/20/2024In the past 12 months, how many times have you moved where you were living?t any time in the past 12 months, were you homeless or living in a long-term (including now)?No05/20/2024 CommentsUnknownSex and Gender InformationValueDate RecordedSex Assigned at BirthNot on fileLegal TzzTfeerd86/15/2023 10:09 PM EDTGender IdentityNot on fileSexual OrientationNot on filedocumented as of this encounter Miscellaneous Notes * Telephone Encounter - Keily Davila MA - 10/12/2025 3:11 PM EST Pt called in requesting hCG order be sent to [facility]. Pt states negative UPT but excessive nausea. Order sent documented in this encounter Plan of Treatment NameTypePriorityAssociated DiagnosesOrder SchedulehCG, quantitative, LabRoutine Positive urine test ([facility]-HCC) Missed menses Expected: 10/12/2025 (Approximate), Expires: 04/12/2026documented as of this encounter Visit Diagnoses Diagnosis Positive urine test ([facility]HS-HCC) Missed menses documented in this encounter Care Teams Team MemberRelationshipSpecialtyStart DateEnd Date Nathaly John MD [address] [place] [address] PCP - GeneralFamily Medicine06/03/24documented as of this encounter
--- OUTSIDE RECORDS SUMMARY | 2025-10-12 17:03 | XMS_ITS | Clinical Summary ---
Author Organization [facility] Address [address] [facility] [place] [address] Care Team Providers Care Extension Specialist Name Role Phone Nathaly John MD Primary Care Provider [phone] Allergies No known active allergies Medications MedicationSigDispense QuantityRefillsLast FilledStart DateEnd DateStatus losartan (Cozaar) 50 MG tablet Take 50 mg by mouth DailyActive metFORMIN XR (Glucophage-XR) 500 MG 24 hr tablet Indications:PCOS (polycystic ovarian syndrome)Take 1 tablet (500 mg) by mouth in the evening. Take with meals Do not crush, chew, or split. 30 tablet 1104Active Active Problems No known active problems Encounters DateTypeDepartmentCare CyyxFvvobrfogfp68/01/2025Telephone [facility] [address] [place] [address] [place] [address] Keily Davila MA from Last 3 Months Family History Medical HistoryRelationNameCommentsHyperlipidemiaFatherHypertensionFatherStroke Maternal GrandfatherPolycystic kidney diseaseMaternal GrandmotherPolycystic kidney diseaseMotherPolycystic kidney diseaseMother's BrotherDiabetesOther RelationNameStatusCommentsFatherAliveMaternal GrandfatherDeceasedMaternal GrandmotherDeceasedMotherAliveMother's BrotherAliveOther Social History Tobacco UseTypesPacks/DayYears UsedDateSmoking Tobacco: NeverSmokeless Tobacco: Never Tobacco Cessation:Counseling Given: Not Answered Alcohol UseStandard Drinks/WeekCommentsYes0 (1 standard drink = 0.6 oz pure alcohol)once a week- [id number] Health LiteracyAnswerDate RecordedHow often do you need [...] a week 05/20/2024How often do you attend buddhism or cheondoism services?1 to 4 times per year05/20/2024o you belong to any clubs or organizations such as buddhism groups, unions, fraAt[employer] or athletic groups, or school groups?No05/20/2024How often do you attend meetings of the clubs or organizations you belong to?Never05/20/2024 Are you , , , , never , or living with a partner?Oyeybai3805/20/2024UDIT-CAnswerDate RecordedQ1: How often do you have a [...] housing, medical care, and heating?Not hard at all05/20/2024[facility] of Occupational Health - Occupational Stress QuestionnaireAnswerDate RecordedDo you feel stress - tense, restless, nervous, or anxious, or unable to sleep at night because yourmind is troubled all the time - these days?To some yrvrsa7205/20/2024Exercise Vital Sign AnswerDate RecordedOn average, how many [...] were you homeless or living in a custodial (including now)?No05/20/2024 CommentsUnknownSex and Gender InformationValueDate RecordedSex Assigned at BirthNot on fileLegal SspBqhzhx38/15/2023 10:09 PM EDTGender IdentityNot on fileSexual OrientationNot on file Last Filed Vital Signs Vital SignReadingTime TakenCommentsBlood Zltgwiud035/8203/17/2024 3:06 PM EDT Pulse--Temperature--Respiratory Rate--Oxygen Saturation--Inhaled Oxygen Concentration--Aubfcv35.7 kg (178 lb)03/17/2024 3:06 PM EDTHeight--Body Mass Index-- Plan of Treatment Health MaintenanceDue DateLast DoneCommentsHPV/Wjkrbu9204/20/2019COVID-19 Vaccine ( season)2025Influenza Vaccine (#1)2025ervical Cancer Ayfykpaxa43/06/2027Pap Smearneumococcal Vaccine: Pediatrics (0 to 5 Years) and At-Risk Patients (6 to 64 Years)Aged OutNo longer eligible based on patient's age to complete this topic Procedures Procedure NamePriorityDate/TimeAssociated DiagnosisCommentsPAP SMEARRoutine 03/17/2024 12:00 AM EDTfrom Last 3 Months or Most Recently Relevant to Health Maintenance Results * Pap Smear (03/17/2024 12:00 AM EDT)Specimen (Source)Anatomical Location / LateralityCollection Method / VolumeCollection TimeReceived TimeSwabCervical swab / Unknown Narrative Authorizing ProviderResult TypeResult StatusFazio Nurse [facility] CYTOLOGY ORDERABLESFinal ResultPerforming OrganizationAddressCity/State/ZIP CodePhone Number EXTERNAL LAB from Last 3 Months or Most Recently Relevant to Health Maintenance Insurance MemberSubscriberPlan / Payer (Effective 2021-Present)Name:Ingris Landaverde Relation to Subscriber:SpouseName:LÓPEZ LANDAVERDE Date of :1988 (Home) Address: [address] [place] [id number] Payer ID:Not on file Type:Not on file Address: [address] Care Teams Team MemberRelationshipSpecialtyStart DateEnd Date Nathaly John MD [address] [place], [place] [id number] PCP - GeneralFamily Medicine06/03/24
--- OUTSIDE RECORDS SUMMARY | 2025-10-12 17:07 | XMS_ITS | CCD ---
Author Organization [facility] Care Team Providers Care Radio Engineer Name Role Phone REQUEST, NONE LISTED Unavailable Unavailable HAY, JOSELUIS Unavailable Unavailable HAY, JOSELUIS Unavailable Unavailable CARLOTA, JUDITH Unavailable Unavailable ANDRES PICKENS Unavailable Unavailable KRISTOPHER, FLORY Unavailable Unavailable KRISTOPHER, FOLRY Unavailable Unavailable KRISTOPHER, FLORY Unavailable Unavailable KRISTOPHER, FLORY Unavailable Unavailable ANDRES PICKENS Referring Unavailable ANDRES PICKENS Primary Care Unavailable JOCELINE KELLER Attending Unavailable PATRICK, LONA Jones Attending Unavailable NATHALY JOHN Attending Unavailable NATHALY JOHN Attending Unavailable LONA NGUYEN Attending Unavailable Unavailable Primary Care Provider UnavailTAMRA Winters Attending Unavailable Alvaro BARRAGAN, Nathaly Rubalcava Primary Care Provider Andres Pickens MD Primary Care Provider Andres Pickens MD Primary Care Provider ANDRES PICKENS Attending Unavailable ANDRES PICKENS Referring Unavailable ANDRES PICKENS Primary Care Unavailable ANDRES PICKENS Attending Unavailable ANDRES PICKENS Referring Unavailable ANDRES PICKENS Primary Care Unavailable Allergies Allergy ClassificationReported Allergen(s)Allergy TypeDate of OnsetReaction(s) Facility (1 source)NKADrug allergy (disorder)[facility] (1 source)No Known Drug AllergiesDrug allergy (disorder)[facility] Medications Current Medications MedicationDrug Class(es)DatesSig (Normalized)Sig (Original)clindamycin 300 mg oral capsule (1 source)Lincosamide AntibacterialStart: 06-23-2025 End: 22-97-4452hjfg 1 capsule by mouth three times dailyclindamycin (CLEOCIN) 300 mg capsule Indications: Cutaneous abscess of right lower extremity Take 1 capsule (300 mg total) by mouth 3 (three) times a day for 10 days. 30 capsule 06/23/2025 8622Tnhfpo89 hr metFORMIN hydrochloride 500 mg extended release oral tablet (4 sources)BiguanideStart: 04-16-2024 End: 67-18-7255ngdb 1 tablet by mouth every twenty-four hours at mealtime metFORMIN XR (Glucophage-XR) 500 MG 24 hr tablet Indications: PCOS (polycystic ovarian syndrome) Take 1 tablet (500 mg) by mouth in the evening. Take with meals Do not crush, chew, or split. 30 tablet 11 04/16/2024 04/16/2025 Active mupirocin 0.02 mg/mg topical ointment (1 source)RNA Synthetase Inhibitor AntibacterialStart: 28-64-7924phvnbiuwx (BACTROBAN) 2 % ointment Indications: Cutaneous abscess of right lower extremity Apply 1 Application topically 3 (three) times a day. 22 g 06/23/2025 Active Semaglutide (Weight Loss) (1 source)Start: 89-80-0501Jyksmzxyern (Weight Loss) (Wegovy) 2.4 mg/0.75 mL pen injector Active MG SUBCUT December 16, 2024 12:00amsemaglutide, weight loss, (WEGOVY) 1.7 mg/0.75 mL pen injector (1 source)Start: 26-07-6537bhnsuhdhlql, weight loss, (WEGOVY) 1.7 mg/0.75 mL pen injector Injection weekly 10/27/2024 ActiveWEGOVY 1.7 mg/0.75 mL pen injector (2 sources)Start: 25-88-8694QPZCMF 1.7 mg/0.75 mL pen injector 1.7 mg one time a week. 08/07/2024 ActiveWEGOVY 2.4 mg/0.75 mL pen injector (2 sources)Start: 93-76-1438GYJCCL 2.4 mg/0.75 mL pen injector Injection weekly 10/27/2024 Active Completed/Discontinued Medications MedicationDrug Class(es)DatesSig (Normalized)Sig (Original)losartan potassium 50 mg oral tablet (17 sources)Angiotensin 2 Receptor BlockerStart: 09-04-2023 End: 34-51-4955igvn 1 tablet by mouth once dailylosartan (COZAAR) 50 mg tablet TAKE 1 TABLET BY MOUTH EVERY DAY 30 tablet 10/03/2024 06/23/2025 Discontinued pantoprazole 40 mg delayed release oral tablet (3 sources)Proton Pump InhibitorStart: 11-28-2024 End: 79-87-5214zknb 1 tablet by mouth in the morningpantoprazole (PROTONIX) 40 mg EC tablet Indications: Chest pain on breathing Take 1 tablet (40 mg total) by mouth in the morning. 30 tablet 11/28/2024 06/23/2025 Discontinued Problems Active Problems Problem ClassificationProblemDateDocumented DateEpisodic/ChronicEssential hypertension (12 sources)Hypertensive disorder; Translations: [Essential (primary) hypertension]Onset: 261965-73-6445CbgstnuOlqdncfyk (3 sources)Influenza-like illness; Translations: [Influenza due to unidentified influenza virus with other respiratory manifestations]92-78-4858QgypjwheQkzan lower respiratory disease (1 source)Chest pain on breathing; Translations: [Chest pain on breathing] 60-36-8261RtbukfexSnadmwpw codes; unclassified (1 source)Family history of polycystic kidney; Translations: [Family history of polycystic kidney]Onset: 62-62-6787SibphgqkIlnznblo codes; unclassified (1 source)Encounter for cosmetic surgery; Translations: [Encounter for cosmetic surgery]Onset: 83-63-6694AesbrgdnAmngvqou codes; unclassified (1 source)Patient encounter status; Translations: [Encounter for cosmetic surgery]97-34-2014VnporgqlFbcm and subcutaneous tissue infections (3 sources)Abscess of lower limb; Translations: [Cutaneous abscess of right lower limb]Onset: 081508-55-0473UcxstbxlAywydratvvln (1 source)ER/FUOnset: 11-28-2024 Past or Other Problems Problem ClassificationProblemDateDocumented DateEpisodic/ChronicAbdominal pain (2 sources)Right upper quadrant pain; Translations: [Right upper quadrant pain] Onset: 531520-72-7032SkgstmhgVgwe disorders (7 sources)Mood disordersOnset: 375825-96-5825Qzypffnnv of unspecified nature or uncertain behavior (2 sources)Neoplasm of uncertain behavior of skin of lower limb; Translations: [Neoplasm of uncertain behaviorof skin]65-30-2785OjjzsdvbDefse lower respiratory disease (1 source)Chest pain on breathing; Translations: [Chest pain on breathing]Onset: 35-58-4710LcltjfhiCjrjw skin disorders (1 source)Rhytide of glabellar skin; Translations: [Other specified disorders of the skin and subcutaneous tissue]82-82-6932AdsbihvmLbecsnrx codes; unclassified (1 source)FH: Polycystic kidney; Translations: [Family history of polycystic kidney]19-91-0255Qfapmntz Results Test NameValueInterpretationReference RangeFacilityCNOVon 51-48-3469UWKXKgftlq Visit (PLASMN) MELLY SAVAGE ([id number]) 1990 F Date Time Provider Department 08/14/24 3:00 PM TAMRA GODDARD During your visit today, we recorded the [...] headaches Marital Status: Employment 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 The patient agrees and consents to the procedure attesting to her understanding. Follow up in October 2024 or November 2024 The patient is seen and examined by Tamra Goddard M.D. and the following reflects his service. Scribed by Ina Kee RN I agree with the Chief Complaint, ROS, and Past Histories independently gathered by the clinical donor support technician and the remaining scribed note accurately describes my personal service to the patient. patient's condition reviewed and examined plan of care and options of management, complexity, risk benefit limitation potential complication, success /failure of management, expected result and recovery discussed I spent a total of 30 minutes on the date of service which included preparing to see the patient, tknh-oi-oxyd patient care, completing clinical documentation, obtaining AND reviewing separately an obtained history, performing a medically appropriate examination, counseling AND educating the patient/family/caregiver, ordering medications, tests, or procedures, communicating with other healthcare providers, independently interpreting the results, communicating results to the patient care team, and continued patient care c (more content not included)...NormalDoctors Hospital Panel Informationon 27-08-2102Nlbvfmqgjh: Intermediate Final length (cm): 2.1 Reason for [...] infection, uncontrollable bleeding, or complications. Dressing type: bandMayo Clinic Health System– OakridgeLesion length (cm): 0.3 Lesion width (cm): 0.3 [...] 4.0 ml Estimated blood loss: < 1.0 [facility]US RETROPERITONEAL COMPLETEon 59-11-2730AI RETROPERITONEAL COMPLETEUS RETROPERITONEAL COMPLETE ULTRASOUND RETROPERITONEUM INDICATION: Family history [...] collecting system dilatation. No evidence of polycystic kidneydisease. 2. Findings of hepatic steatosis. Finalized by John Bundy MD on 04/22/2024 3:45 PMNRiverside [facility] Hospital ALL DEHYDROEPIANDROSTERONEon 26-31-3039ZKVU, HDIVT616 ng/dL31 - 701 ng/dLNOMS HealthcareComment on above:This test was developed and its performance characteristics determined by [facility]. It has not been cleared or approved by the Food and Drug Administration. Performed at: [address] [id number] Business Analyst Manager: Jeannette Pak MD, Phone: [phone] CLINISYOKNOMI HealthcareALL DHEA SULFATEon 37-62-3471IVQV-PTXKIZR044.0 ug/dL Dizgjmjh65.8 - 378.0 ug/dLNOMS HealthcareInterpretation and review of laboratory resultsAbnormalNOMI HealthcareALL FOLLICLE STIMULATING HORMONEon 85-09-8501KGR 5.3. mIU/mLNOMS HealthcareComment on above:Adult Female Range Follicular phase 3.5 - 12.5 Ovulation phase 4.7 - 21.5 Luteal phase 1.7 - 7.7 Postmenopausal 25.8 - 134.8 Performed at: [address] [id number] Business Analyst Manager: Jim Serna PhD, Phone: [phone] ALL LUTEINIZING HORMONEon 46-26-3863FVBTVIZRXTB HORMONE(LH)9.8. mIU/mLNOMS HealthcareComment on above:Adult Female Range Follicular phase 2.4 - 12.6 Ovulation phase 14.0 - 95.6 Luteal phase 1.0 - 11.4 Postmenopausal 7.7 - 58.5 No Panel Informationon 65-38-6706LTWEKPDMBALZU HealthcareALL THYROID STIM HORMONEon 70-71-1320FQC Qn1.597 m[IU]/LNOMS HealthcareALL THYROXINE (T4) FREEon 07-93-5983Ohgy T4 [Mass/Vol]0.95 ng/dL0.76 - 1.46 ng/dLNOMS HealthcareMLR HEMOGLOBIN A1Con 88-19-3521Xxsvdvw [Mass/Vol]108 mg/dLNOMI KwlmpzcgjbMrN8g (Bld) [Mass fraction]5.4 %4.5 - 6.2 %NOMS HealthcareComment on above:ADA RECOMMENDED LIMIT 4.0 - 6.0 ADA THERAPEUTIC TARGET < 7.0 ACTION SUGGESTED > 7.0 No Panel Informationon 21-41-2677LEJRNZYPSKOPQ HealthcareCLINISYNCNOMS HealthcareTBH PREG QUANT HCGon 74-85-8833LNU QUANTITATIVE<1mIU/mLNOMS Healthcare Comment on above:5-50 0.2-1 WEEK 50-500 1-2 WEEKS 100-5,000 2-3 WEEKS 500-10,000 3-4 WEEKS 1,000-50,000 4-5 WEEKS 10,000-100,000 5-6 WEEKS 15,000-200,000 6-8 WEEKS 10,000-100,000 2-3 MONTHS US PELVIS W/ TRANSVAGINALon 63-65-7986[place] [address] Ultrasound Report Signed Patient: MELLY SAVAGE MR#: [id number] : 1990 Acct:[id number] Age/Sex: 33 / F ADM Date: 03/19/24 Loc: US Attending Dr: Joceline Keller Ordering Physician: Joceline Keller Date of Service: 03/19/24 Procedure(s): US pelvis w/ transvaginal Accession Number(s): [id number] cc: Joceline Keller; ANDRES PICKENS [place] [id number] Patient Name: MELLY SAVAGE MRN: [id number] date: 1990 Sex: F Assigned Patient Location: US Current Patient Location: US Accession/Order Number: [id number] Exam Date: 03/19/2024 14:06 Report Date: 03/19/2024 14:44 At the request of: JOCELINE KELLER Procedure: US pelvis w/ transvaginal EXAMINATION: US pelvis w/ transvaginal HISTORY: polycystic ovarian syndrome E28.2 COMPARISON: No relevant comparison available. FINDINGS: Transabdominal and transvaginal images The uterus is normal in size, contour and myometrial echotexture measuring 9.3 x 4.2 x 5.9 cm, anteverted. No focal myometrial mass. The endometrium measures 7 mm, normal. The right ovary measures 2.8 x 3.1 x 2.6 cm. Normal color and Doppler flow. Multiple subcentimeter areas of anechoic echogenicity consistent with follicles. The left ovary measures 2.9 x 2.1 x 3.1 cm. Normal color and Doppler flow. Multiple subcentimeter areas of anechoic echogenicity consistent with follicles No free fluid US/US pelvis w/ transvaginal IMPRESSION: Polycystic ovarian morphology Electronically authenticated by: VENU CARVAJAL Date: 03/19/2024 14:44 Dictated By: Venu Carvajal M.D. Signed By: 03/19/24 1446 DD/ 43 TD/TT: [employer] Supervisor:TBHRadiology, Radiologist, - 03/19/2024 [place] [address] Ultrasound Report Signed Patient: MELLY SAVAGE MR#: [id number] : 1990 Acct:[id number] Age/Sex: 33 / F ADM Date: 03/19/24 Loc: US Attending Dr: Joceline Keller Ordering Physician: Joceline Keller Date of Service: 03/19/24 Procedure(s): US pelvis w/ transvaginal Accession Number(s): [id number] cc: Joceline Keller; ANDRES PICKENS The [address] [address] Patient Name: MELLY SAVAGE MRN: [id number] date: 1990 Sex: F Assigned Patient Location: US Current Patient Location: US Accession/Order Number: [id number] Exam Date: 03/19/2024 14:06 Report Date: 03/19/2024 14:44 At the request of: JOCELINE KELLER Procedure: US pelvis w/ transvaginal EXAMINATION: US pelvis w/ transvaginal HISTORY: polycystic ovarian syndrome E28.2 COMPARISON: No relevant comparison available. FINDINGS: Transabdominal and transvaginal images The uterus is normal in size, contour and myometrial echotexture measuring 9.3 x 4.2 x 5.9 cm, anteverted. No focal myometrial mass. The endometrium measures 7 mm, normal. The right ovary measures 2.8 x 3.1 x 2.6 cm. Normal color and Doppler flow. Multiple subcentimeter areas of anechoic echogenicity consistent with follicles. The left ovary measures 2.9 x 2.1 x 3.1 cm. Normal color and Doppler flow. Multiple subcentimeter areas of anechoic echogenicity consistent with follicles No free fluid US/US pelvis w/ transvaginal IMPRESSION: Polycystic ovarian morphology Electronically authenticated by: VENU CARVAJAL Date: 03/19/2024 14:44 Dictated By: Venu Carvajal M.D. Signed By: 03/19/241445 DD/ 43 TD/TT: [employer] Supervisor: [facility] HospitalRadiology Study observation (narrative)[facility] Healthcare PELVIS W/ TRANSVAGINALOrdered By: Radiologist Radiology on 79-34-5888UAJF [employer] Work Phone: PREG QUANT HCGon 01-64-4488SHZ QUANT<2.39Lake[facility] TriPoint Medical CenterComment on above:Performed By: #### PREGQNT ####[facility] [address] [place] [address] ElijahCarePartners Rehabilitation Hospital RANGES BELOWLakeHealth TriPoint Medical CenterComment on above:Result Comment: 5-50 0-1 WEEK 40-300 1-2 WEEKS 100-1,000 2-3 WEEKS 500-6,000 3-4 WEEKS 5,000-200,000 1-2 MONTHS 10,000-100,000 2-3 MONTHS 3,000-50,000 2ND TRIMESTER 1,000-50,000 3RD TRIMESTERPerformed By: #### PREGQNT ####[facility] Ceextktnsg[address] KarenER URINE PROFILEon 11-27-[address] BILIRUBINNegativeNormalNEGATIVESt. Rita'S HospitalComment on above:Performed By: #### ERUR ####[facility] [address] [place] [address] KarenBLOODNegativeNormalNEGATIVEThe Petersburg HospitalComment on above:Performed By: #### ERUR ####[facility] Jrckmbxddi[address] [place], [place] [address]Vanwpf KarenCLARITYCLEARNormalThLutheran Hospital Comment on above:Performed By: #### ERUR ####[facility] Eupinjhq[address] [place], [place] [address]Yugfdt KarenCOLORLT. YELLOWNormalYELLOWSt. Rita'S HospitalComment on above:Performed By: #### ERUR ####[facility] Unlbxvfjjh[address] [place], [place] [address]Wwsjgq KarenERUAHDA micrscopic examination will be performed if indicated.NormalSt. Rita'S HospitalComment on above:Performed By: #### ERUR ####[facility] [address] [place] [id number] KarenGLUCOSENegative NormalNEGATIVESt. Rita'S HospitalComment on above:Performed By: #### ERUR ####[facility] [address] [place] [address]Gerken KarenKETONESTRACENormalNEGATIVESt. Rita'S HospitalComment on above:Performed By: #### ERUR ####[facility] Wlzqpncpgo[address] [place] [address]Gerken KarenLEUKOCYTESNegativeNormalNEGATIVESt. Rita'S Hospital Comment on above:Performed By: #### ERUR ####[facility] Wlgd[address] [place] [address]Gerken KarenNITRITENegativeNormalNEGATIVESt. Rita'S HospitalComment on above:Performed By: #### ERUR ####[facility] Irfadonqxt[address] [place], [place] [address]Bjchff KarenpH6.2Zawruv8-2FgcSt. Rita'S HospitalComment on above:Performed By: #### ERUR ####[facility] Dogselubng[address] [place], [place] [address]Dynwtm KarenPROTEINNegative NormalSt. Rita'S HospitalComment on above:Performed By: #### ERUR ####[facility] Feb[address]adp[address] [place] [address] KarenSPEC GRAVITY1.311Sfvnzr0.005-<=1.025The [facility] HospitalComment on above:Performed By: #### ERUR ####[facility] Aty[address] [place] [address] KarenUR MICRO INDNOT INDICATEDLakeHealth TriPoint Medical Center Comment on above:Performed By: #### ERUR ####[facility] Rrjvmdks[address] [place] [address] KarenUROBILINOGEN0.2 EU/dlLakeHealth TriPoint Medical CenterComment on above:Performed By: #### ERUR ####[facility] Krq[address] [place] [address] KarenPREGNANCY URon 71-25-7894CVRKJPWMT, QUALNegativeNormalNEGATIVESt. Rita'S HospitalComment on above:Performed By: #### PREGU ####[facility] S[address] [place] [address] KarenPROF CHEM 8 (BAS METB)on 31-49-1057Iwaze gap16.5 mmol/LNormalSt. Rita'S HospitalComment on above:Performed By: #### BMP, TSH ####[facility] I[address] [place] [address] KarenBUN/Creatinine Ratio18.3 mg/mgLakeHealth TriPoint Medical Center Comment on above:Performed By: #### BMP, TSH ####[facility] O[address] [place] [address] KarenCalcium9.9 mg/dL Normal8.4-10.2St. Rita'S HospitalComment on above:Performed By: #### BMP, TSH ####[facility] W[address]re[address] [place] [address] CzgsnVthglqbo846 mmol/RPnxkuj36-233Dvb [facility] HospitalComment on above: Performed By: #### BMP, TSH ####[facility] Bbvwepg[address] [place] [address] RnwywXK303.0 mmol/LHcrjix48.0-30.0The [facility] HospitalComment on above:Performed By: #### BMP, TSH ####[facility] Ihrulirquh[address] KarenCreatinine0.74 mg/dLNormal0.52-1.04The [facility] HospitalComment on above:Performed By: #### BMP, TSH ####[facility] Hezioblwbi4[address] KarenEGFR-AF THAI>60Normal>=60The [facility] HospitalComment on above:Performed By: #### BMP, TSH ####[facility] Ocyqbvuvly[address] KarenEGFR-NON AF THAI>60Normal>=60The [facility] HospitalComment on above:Performed By: #### BMP, TSH ####[facility] Lzqnnbicsx[address] [place] [address] KarenGlucose mass conc93 mg/pNYyizdg00-594Qjz [facility] HospitalComhenry ford cottage [facility] on above:Performed By: #### BMP, TSH ####[facility] Jcpneimilt[address] [place] [address] KarenPotassium molar conc3.9 mmol/LNormal3.4-5.0The [facility] HospitalComment on above:Performed By: #### BMP, TSH ####[facility] C[address] [place] [address] LtyjxGvqvmy877 mmol/L Dkuuvo071-442Jsx [facility] on above:Performed By: #### BMP, TSH ####[facility] Rziyxlkuqy1638 [address] KarenUrea aqwwcwsz31.0 mg/dLNormal7.0-17.0The [facility] on above: Performed By: #### BMP, TSH ####[facility] Qnyrxnjp[address] [place] [address] KarenTSHon 05-96-3145Rntzmrz stimulating hormone (TSH)SEE BELOWNormalThe [facility] HospitalComment on above:Result Comment: <0.34 UIU/ml HYPERTHYROID 0.34-5.60 UIU/ml EUTHYROID >5.60 UIU/ml HYPOTHYROIDPerformed By: #### BMP, TSH ####[facility] Lnruhnmbud[address] [place], [place] [address]Fylvop ElijahenThyroid stimulating hormone (TSH) 2.540 uIU/mLNormal0.470-4.680The [facility] HospitalComment on above:Performed By: #### BMP, TSH ####[facility] Aoz[address]epkqm[address] [place], [place] [address]Wbwckz Lakia Vital Signs Date TimeVital SignValuePerforming SzduoqkysXelggqla51-97-6536 14:08-0400Body mass index (BMI) [Ratio]27.85 kg/m2Andres Pickens MD Work Phone: [phone])[address]08-12-2025 14:08-0400Body ekowdk06.11 kgAndres Pickens MD Work Phone: [phone])[address]08-12-2025 14:08-0400Diastolic blood lldosmlv59 mm[Hg]Andres Pickens MD Work Phone: [phone])936-[address] [place], [place] 7695808-12-2025 14:08-0400Heart rate 62 /minAndres Pickens MD Work Phone: [phone] [place], [place] 7695808-12-2025 14:08-0400Systolic blood ccnkreey567 mm[Hg]Andres Pickens MD Work Phone: [phone])555-[address] [place], [place] 7[address]802-04-2025 11:57-0500Body hfwhum009.1 cmMer[facility]02-04-2025 11:57-0500Body mass index (BMI) [Ratio]24.4 kg/o0HujdohseeMercy Health Fairfield Hospital02-04-2025 11:57-0500Body gyxogfnmasp30.2 [degF][facility]02-04-2025 11:57-0500Body birvus63.67 kgMercy Health [facility] Hospital02-04-2025 11:57-0500Diastolic blood qxsqaxtp24 mm[Hg][facility] 12-16-2024 11:57-0500Heart rate90 /[facility] 12-16-2024 11:57-0500Respiratory rate16 /[facility] 12-16-2024 11:57-9339WkO0% (BldA) [Mass fraction]98 %[facility]02-04-2025 11:57-0500Systolic blood wfaqqhqu129 mm[Hg][facility]01-17-2025 14:07-0500Body mass index (BMI) [Ratio]24.74 kg/m2Andres Pickens MD Work Phone: [phone])[address]01-17-2025 14:07-0500Body wjlzge71.49 kgAndres Pickens MD Work Phone: [phone]01-17-2025 14:07-0500Diastolic blood lvhqeupn59 mm[Hg]Andres Pickens MD Work Phone: [phone]01-17-2025 14:07-0500Heart rate 87 /Zechariah Pickens MD Work Phone: [phone])[address]01-17-2025 14:07-0500Systolic blood drhywunj385 mm[Hg]Andres Pickens MD Work Phone: [phone])[address]10-03-2024 14:45-0400Body ljczon839.1 Debbi Goddard MD Work Phone: [phone] Wert County HospitalYxdbsq54-94-6701 14:45-0400Body mass index (BMI) [Ratio]27.36 kg/r0YppbjTamra Goddard MD Work Phone: EVan Wert [facility] HospitalZbvdkw76-77-4922 14:45-0400Body temperature 97.2 [degF]Tamra Goddard MD Work Phone: CVan Wert [facility] HospitalXvanka67-62-6596 14:45-0400Body iojxdd12.57 kgTamra Goddard MD Work Phone: CVan [facility] HospitalNsvonh43-92-7676 14:45-0400Diastolic blood luzjgdrl321 mm[Hg]Tamra Goddard MD Work Phone: [place] Vegqbu14-31-3694 14:45-0400Heart rate80 /min Tamra Goddard MD Work Phone: [place] Owluri37-86-6114 14:45-0400Systolic blood tvkyeind220 mm[Hg]Tamra Goddard MD Work Phone: [place] [facility] Encounters Encounter DateEncounter TypeCare ProviderFacilityStart: 06-23-2025 End: 33-48-8776jejtdtvfkuKDIY [facility] PPGStart: 06-23-2025 End: 34-75-8286Dqrshb outpatient visit 15 Bailey Pickens MD Work Phone: [facility] Comment on above:Cutaneous abscess of right lower extremity (Primary Dx); Primary hypertensionStart: 01-16-2025 End: 96-21-0892Ftwayvesd encounterDeb Cook Physicians Internal Medicine/PediatricsStart: 12-16-2024 End: 03-57-9495qxrnbmvbjtUpvnpfwkvSt. [facility] Hospital Work Phone: Start: 12-16-2024 End: 53-17-2394Evhhdid encounter procedureNovant Health [facility] Phys[facility] GroupCL[facility] Urgent [facility] Work Phone: Start: 11-28-2024 End: 29-95-9821Vgjxtu outpatient visit 15 Bailey Pickens MD Work Phone: [facility] Comment on above:Chest pain on breathing (Primary Dx); Right upper quadrant abdominal painStart: 11-28-2024 End: 82-07-5693sioijpfzdePHFD J [facility] PPGStart: 10-03-2024 End: 12-74-3518QlqcyoPlfoEvelia Pickens MD Work Phone: [facility] Start: 08-14-2024 End: 60-06-8378Iauaumo encounter procedureTamra Goddard MD Work Phone: plastic SurgeryComment on above:Encounter for cosmetic surgery (Primary Dx)Start: 08-14-2024 End: 89-80-9405fzghteqnnwWPHNH S DJOHANFacility:[facility] HospitalStart: 08-14-2024 End: 23-74-1193Elhdf abstractDonavan Goddard MD Work Phone: Plastic SurgeryComment on above:PHOTOS TAKENStart: 07-02-2024 End: 72-31-9897Vlfiqi flowsheetEmshay Nguyen MD Work Phone: [facility] SWS DERMStart: 07-02-2024 End: 20-33-2183Lfpynj flowsheetEmshay Nguyen MD Work Phone: NOTB SWS DERMStart: 07-02-2024 End: 67-96-6336Lozcala encounter procedureEmshay Nguyen MD Work Phone: noms SWS DERMComment on above:Neoplasm of uncertain behavior of skin of lower extremity (Primary Dx)Start: 07-02-2024 End: 75-69-9657pmrqjjilkhPNIML A PETITTINot AvailableStart: 07-01-2024 End: 08-03-0863zrdckxzcpkPZSD F BOWERNot AvailableStart: 07-01-2024 End: 51-13-1703Tvhadx follow up visit related to original Liliana John MD Work Phone: [facility] FNR FMComment on above:Glabellar wrinkles (Primary Dx)Start: 06-03-2024 End: 39-52-5165rlkafvyizyYTWQ F BOWERNot AvailableStart: 04-29-2024 End: 95-48-6543Ydelespzw encounterAndres Pickens MD Work Phone: [facility] Start: 04-22-2024 End: 46-76-6951bcrosuotoyFJBV J HIESTANDProMedica [facility] City HospitalStart: 04-21-2024 End: 85-67-5525Ratpoggaf encounterAndres Pickens MD Work Phone: [facility] CenterInsurance Business Applications [facility] Start: 04-14-2024 End: 83-33-4108fcpzlwybpcWVDGC A PETITTINot AvailableStart: 03-19-2024 End: 92-57-6304Rltpixiar Result EncounterJoceline GODINEZ Work Phone: NOOA External Department UnsolicitedStart: 03-19-2024 End: 81-76-3087Jehmprcez Result EncounterJoceline GODINEZ Work Phone: NOLM External Department UnsolicitedStart: 03-17-2024 End: 49-98-5542bjltzqamedVKS ARIANNANot AvailableStart: 19-46-4842SiqtirYhhxtezce Lamson CMAProMedica Physicians Internal Medicine/PediatricsStart: 06-04-2018 End: 24-20-1636Tyquema encounterCOREY FAZIOFacility:A3Qvmid: 11-27-2017 End: 88-68-6357Bqywmzh encounterNONE LISTED REQUESTFacility:H1 Procedures DateProcedureProcedure DetailPerforming ClinicianStart: 60-92-5871KMQD REPAIR Lona Nguyen MD Work Phone: Start: 84-08-8269DNDS EXCISIONLona Nguyen MD Work Phone: Start: 44-46-5406DM PELVIS W/ TRANSVAGINALAmy Arianna GODINEZ Work Phone: Start: 71-68-6247JED DEHYDROEPIANDROSTERONEJoceline GODINEZ Work Phone: Start: 78-83-3925IET DHEA SULFATEJoceline GODINEZ Work Phone: Start: 17-92-0291EYM FOLLICLE STIMULATING HORMONEJoceline GODINEZ Work Phone: Start: 21-39-3279VGF LUTEINIZING HORMONEJoceline GODINEZ Work Phone: Start: 77-61-6590DLO THYROID STIM HORMONEJoceline GODINEZ Work Phone: Start: 24-71-1604BWQ THYROXINE (T4) FREEJoceline GODINEZ Work Phone: Start: 61-09-3172VWR HEMOGLOBIN A1CJoceline GODINEZ Work Phone: Start: 01-83-2135JEX PREG QUANT HCGJoceline GODINEZ Work Phone: Start: 58-86-3337Wfubsjvrcum observation [Identifier] in Cervix by Cyto Cheryl Pickens MD Work Phone: start: 73-74-2227Nzewa depression screening assessment Nicole Severino CMA Plan of Treatment DateCare ActivityDetailAuthorStart: 90-19-8529Cwoovkowx for malignant neoplasm of cervixNOMS HealthcareStart: 60-52-7325Ljbhf BMI ScreeningAdult BMI Screening [facility] SystemStart: 90-67-5432Ejgtjja ScreeningTobacco Screening [facility] SystemStart: 53-74-7349Ptcfzzpjj vaccinationThe Jewish Hospital SystemStart: 11-28-2024 End: 58-47-9415TO Abdomen limitedUltrasound abdomen limited Imaging Routine Right upper quadrant abdominal pain Expected: 11/28/2024, Expires: 11/28/2025 [facility] Work Phone: comment on above:Expected: 11/28/2024, Expires: 11/28/2025Start: 72-50-2513Rafki BMI ScreeningAdult BMI ScreeningThe Jewish Hospital SystemStart: 32-66-1211Stvjzqnngl ScreeningDepression ScreeningThe Jewish Hospital SystemStart: 25-99-4413Uzwqqjq ScreeningTobacco ScreeningThe Jewish Hospital SystemStart: 07-16-2024 End: 69-40-9997Mnyvmjx encounter negvplhzs57/04/2024 2:30 PM EDT Office Visit [facility] [address] [place] [address] Dia Black PA [address] [place] [address] [facility] DERMStart: 43-78-0541Wzcls-19 Vaccine ( season)Covid-19 Vaccine ( season)[facility]: 07-31-9268Eijbzyltq vaccinationMercy Health Lorain Hospitaltart: 07-02-2024 End: 14-43-3970Wvvfhlx encounter procedureNOMS SWS DERMComment on above:Arrived Start: 04-22-2024 End: 49-95-7815Tjnmlcj encounter dlpayxwwz84/11/2024 8:30 AM EDT Appointment [facility] - Ultrasound [address] [place] [address] [phone] VA Medical Center - UltrasoundStart: 04-21-2024 End: 22-77-6267UA RetroperitoneumUltrasound retroperitoneal complete Imaging Routine Family history of polycystic kidney disease Expected: 04/21/2024, Expires: 04/21/2025[facility] Work Phone: comment on above:Expected: 04/21/2024, Expires: 04/21/2025Start: 02-96-9803Ybfzjnvsu vaccinationInfluenza VaccineThe Jewish Hospital SystemStart: 87-72-3093Jondxwaha for malignant neoplasm of cervix HPV/CotestNOMS HealthcareStart: 79-39-8758Mwpusagaj for malignant neoplasm of cervixMercy Health Lorain Hospitaltart: 80-30-8447Fsxecsdeh B Vaccine (1 of 3 - 19+ 3-dose series)Hepatitis B Vaccine (1 of 3 - 19+ 3-dose series)[facility]art: 48-68-4542Fobct BMI Follow Up PlanAdult BMI Follow Up PlanThe Jewish Hospital SystemStart: 71-44-9323Afinns PCP Team Chronic Disease VisitAnnual PCP Team Chronic Disease VisitMercy Health Lorain Hospitaltart: 75-97-6710Sjwtzhj ScreeningAnxiety ScreeningMercy Health Lorain Hospitaltart: 12-62-1983CW Controlled (<130/80)BP Controlled (<130/80)[facility]: 79-73-4177Zglzhxjiyc ScreeningDepression ScreeningMercy Health Lorain Hospitaltart: 31-02-0860Ycgkglehw C screeningHepatitis C ScreeningMercy Health Lorain Hospitaltart: 69-86-2772ESY screeningHIV ScreeningMercy Health Lorain Hospitaltart: 13-31-2829PXyN,Tdap and Td Vaccines (5 - Tdap)DTaP,Tdap and Td Vaccines (5 - Tdap)[facility]ertart: 84-46-5379Kqsah microalbumin profileDTaP,Tdap,Td Vaccine (5 - Tdap)[facility] HospitalDermatopathology exam Dermatopathology exam Pathology and Cytology Timed Neoplasm of uncertain behavior of skin of lower extremity Release Upon Ordering for 1 Occurrences starting 07/02/2024[facility] Work Phone: comment on above:Release Upon Ordering for 1 Occurrences starting 07/02/2024 Immunizations Immunization DateImmunizationNotesCare WghumugcRujdmwvg10-78-7847aycicai, mumps and rubella virus vaccineElizabeBlanchard [facility]04-19-2001 poliovirus vaccine, inactivatedElizabeBlanchard [facility] 04-87-1178fsobffeoah, tetanus toxoids and pertussis vaccineElizaACMC Healthcare System Glenbeigh06-22-1992haemophilus influenzae type b vaccine, conjugate unspecified formulationEliSelect Medical Specialty Hospital - [facility] 22-73-2937vmsqsoevq poliovirus vaccine, live, oralElizabeth [facility]02-11-1991diphtheria, tetanus toxoids and pertussis vaccine NicoleBlanchard Valley [facility]02-11-1991measles, mumps and rubella virus vaccineElizabeBlanchard [facility]01-29-1990diphtheria, tetanus toxoids and pertussis vaccineSunset AcresbeBlanchard Valley Health [facility] 41-26-6669wgydzwfct poliovirus vaccine, live, oralElizabeth [facility]1989diphtheria, tetanus toxoids and pertussis vaccine NicoleBlanchard Valley [facility]1989trivalent poliovirus vaccine, live, oralElizabeth [facility] Payers DatePayer CategoryPayerPolicy [id number] [facility] Member Subscriber Plan / Payer (Effective 2021-Present) Name: Melly Savage Relation to Subscriber: Spouse Name: MOO SAVAGE Date of : 1988 (Home) Address: [facility] [place] [address] Payer ID: Not on file Type: Not on file Address: [address] [place] [id number] [facility] Care - PPOANTHEM Member Subscriber Plan / Payer (Effective 2021-Present) Name: Melly Savage Relation to Subscriber: Spouse Name: Saima Moo Tom Date of : 1988 (Home) Address: [place] [address] Payer ID: [id number] (NAIC) Type: Not on file Address: [address] [place] [id number] [id number] [id number] 2.840.1.206181.3.57[id number] 2.16840.1.564157.3.57[id number] 2.840.1.651623.3.57[id number] 2.16840.1.131279.3.57[id number] 2..840.1.667605.3.57[id number] 2.840.1.960142.3.57[id number] 2.0.1.244002.3.57[id number] 2.0.1.343141.3.579.2.371115-72-9350Rcnhpon Health [id number] Social History DateTypeDetailFacilityStart: 03-17-2024 End: 99-96-1618Qcnjbjb smoking status NHISNever smoked tobaccoSt. Rita'S Hospital Start: 03-17-2024 End: 42-53-6978Djshfro use and exposureSmokeless tobacco non-userPremier Health [facility] Hospital Health SystemStart: 03-17-2024 End: 10-79-0579Nfdwljcri beverage intakeCurrent drinker of alcohol (finding) [facility] SystemStart: 05-20-2024 End: 23-36-5350Djbwirf of Social functionNOMI HealthcareStart: 05-20-2024 End: 38-20-7802Cnjxbok use panelNOMI HealthcareStart: 46-42-9299Esdljzah Score (1-100), lower number is lower udwc57KOMB HealthcareStart: 75-95-9621Afotxmc CommentsocialMercy Health Lorain Hospitaltart: 80-62-1613Jef assigned at birthNot on file [facility] SystemDo you belong to any clubs or organizations such as confucianism groups, unions, fraternal or athletic groups, or school groups?NoNOMS HealthcareAre you now , , , , never or living with a partner?MarriedNOMS HealthcareHow often to you have a drink containing alcohol?2-3 time sa weekNOMS HealthcareHow many standard drinks containing alcohol do you have on a typical day?5 or 6NOMS HealthcareHow often do you have 6 or more drinks on 1 occasion?WeeklyNOMS HealthcareDo you feel stress - tense, restless, nervous, or anxious, or unable to sleep at night because yourmind is troubled all the time - these days [OSQ]To some extentNOMI Healthcare(I/We) worried whether (my/our) food would run out before (I/we) got money to buy more.Never trueNOMS HealthcareStart: 96-93-6426Nuhznlj Commentonce a week- beerAMERICAN FORK HOSPITAL HealthcareStart: 28-21-1044Vwzazff Commentevery Sat. & sometimes during weekThe Jewish Hospital SystemStart: 64-63-5959Sqe assigned at [facility] SystemStart: 06-17-2015 End: 00-79-2520BwnRfgdbc (finding)[facility] Centertart: 02-64-7133Obmtdm identityIdentifies as female gender (finding)[facility] HospitalHow often do you need to have someone help you when you read instructions, pamphlets, or other written material from your doctor or pharmacy [SILS]NeverCedar County Memorial Hospital Functional Status CpksRmxthkyrhbWbpanzWkrjfknf37-13-1467Phoxf score [AUDIT-C]8 05/20/2024 12:04 PM EDT Mychart, GenericCedar County Memorial HospitalQvayybcjuj63-80-0960Mci often do you have a drink containing alcohol?2-3 times a week 05/20/2024 12:04 PM EDT Mychart, Generic 2-3 times a weekCedar County Memorial HospitalOisnqyhddy68-30-0148Ffu many standard drinks containing alcohol do you have on a typical day?5 or 6 05/20/2024 12:04 PM EDT Mychart, Generic 5 or 6Cedar County Memorial HospitalRqocwuwnmg59-80-6616Uta often do you have 6 or more drinks on 1 occasion?Weekly 05/20/2024 12:04 PM EDT Mychart, Generic WeeklyCedar County Memorial Hospital Clinical Notes 11-19-2023 to 06-23-2025 Note Date & WctyAiteUxczzhuu88-99-7336 History of Present illness Narrative* Andres Pickens MD - 06/23/2025 2:00 PM EDT Subjective Patient ID: Melly Savage is a 35 y.o. female. Comes in with 2 concerns. The main concern is related to possible infection on her right posterior calf. She had a molluscum lesion and then it appeared to become infected. She has no fever or systemic symptoms. Additionally, she has been off of her blood pressure medication. She has had some weight loss with the use of Wegovy. She has been monitoring her blood pressure and it generally is in thetarget range. The following portions of the patient's history were reviewed and updated as appropriate: allergies, current medications, past medical history, past social history, and problem list. Review of Systems Objective Physical Exam Constitutional: Comments: Afebrile. Blood pressure above ideal target. Musculoskeletal: Right lower leg: No edema. Left lower leg: No edema. Skin: Comments: On the back of her right calf is an erythematous indurated area about 4-5 cm in diameter.No drainage. I do not think there is a drainable pus collection at the moment. Neurological: Mental Status: She is alert. Assessment/Plan She will keep the area clean with soap and water and use some warm compresses. Reviewed with her that it may develop into a drainable pus collection before it resolves. Further pending her course. She will stay off of her blood pressure medication, continue to monitor her blood pressure, and hopefully continue with some additional weight loss. Diagnoses and all orders for this visit: Cutaneous abscess of right lower extremity - clindamycin (CLEOCIN) 300 mg capsule; Take 1 capsule (300 mg total) by mouth 3 (three) times a day for 10 days. - mupirocin (BACTROBAN) 2 % ointment; Apply 1 Application topically 3 (three) times a day. Primary hypertension documented in this encounterEast [facility] Hospital03-07-2025 Miscellaneous Notes* Telephone Encounter - URVASHI Abraham - 01/16/2025 11:57 AM EST Lmom for patient reminding her to call central scheduling to schedule her US. documented in this encounterEast Ohio Regional Hospital03-07-2025 Telephone encounter Note* Telephone Encounter - URVASHI Abraham - 01/16/2025 11:57 AM EST Lmom for patient reminding her to call central scheduling to schedule her US. [facility] SystemThink GamingDvpxri79-51-4570 History of Present illness Narrative* Andres Pickens MD - 11/28/2024 2:15 PM EST Subjective Patient ID: Melly Savage is a 34 y.o. female. She had an episode of pressure in her chest resulting in an ER evaluation. Testing in the ER included EKG, labs, chest imaging. Testing was negative. Symptoms have essentially resolved. She denies cough, ongoing SOB. Not really noting indigestion or heartburn, some RUQ pain and nausea at times. The following portions of the patient's history were reviewed and updated as appropriate: allergies, current medications, past medical history, past social history, past surgical history, and problemlist. Review of Systems Objective Physical Exam Constitutional: Comments: She appears well. BP normal. Neck: Comments: No thyroid enlargement or neck mass. Cardiovascular: Rate and Rhythm: Normal rate and regular rhythm. Heart sounds: No murmur heard. No gallop. Pulmonary: Effort: Pulmonary effort is normal. Breath sounds: Normal breath sounds. Abdominal: General: There is no distension. Palpations: Abdomen is soft. There is no mass. Tenderness: There is no abdominal tenderness. Musculoskeletal: Right lower leg: No edema. Left lower leg: No edema. Assessment/Plan Possibly some relation to reflux and a trial of PPI is reasonable. Will check GB US d/t the RUQ symptoms. Further pending her course and test results. Diagnoses and all orders for this visit: Chest pain on breathing - pantoprazole (PROTONIX) 40 mg EC tablet; Take 1 tablet (40 mg total) by mouth in the morning. Right upper quadrant abdominal pain - Ultrasound abdomen limited; Future documented in this encounterKindred HealthcareMeshfire11-22-2024 Miscellaneous Notes* Telephone Encounter - Nicole Severino CMA - 10/03/2024 12:41 AM EST Refill request documented in this encounterEast [facility] Hospital11-22-2024 Telephone encounter Note* Telephone Encounter - Nicole Severino CMA - 10/03/2024 12:41 AM EST Refill request [facility]10-03-2024 NoteHNO ID: [id number] Author: ISABEL SNYDER ST Service: ? Author Type: Surg Bow Rehairer Type: Progress Notes Filed: 08/14/2024 15:28 Note Text: DATE OF PHOTOS: 08/14/2024 Body Part: Breasts ST ASTRID August 14, 2024 3:28 [facility]10-03-2024 History of Present illness Narrative* Isabel Snyder ST - 08/14/2024 3:28 PM EDT DATE OF PHOTOS: 08/14/2024 Body Part: Breasts ST ASTRID August 14, 2024 3:28 PM documented in this encounterSt. Rita'S Hospital09-30-2024 NoteHNO ID: [id number] Author: TAMRA GODDARD MD Service: ? 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 The patient agrees and consents to the procedure attesting to her understanding. Follow up in October 2024 or November 2024 The patient is seen and examined by Tamra Goddard M.D. and the following reflects his service. Scribed by Ina Kee RN I agree with the Chief Complaint, ROS, and Past Histories independently gathered by the clinical donor support technician and the remaining scribed note accurately describes my personal service to the patient. patient's condition reviewed and examined plan of care and options of management, complexity, risk benefit limitation potential complication, success /failure of management, expected result and recovery discussed I spent a total of 30 minutes on the date of service which included preparing to see the patient, wfuo-wk-jvyp patient care, completing clinical documentation, obtaining AND reviewing separately an obtained history, performing a medically appropriate examination, counseling AND educating the patient/family/caregiver, ordering medications, tests, or procedures, communicating with other healthcare providers, independently interpreting the results, communicating results to the patient care team, and continued patient care coordination. This is included in the documentation noted above. 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 The patient agrees and consents to the procedure attesting to her understanding. Follow up in October 2024 or November 2024 The patient is seen and examined by Tamra Goddard M.D. and the following reflects his service. Scribed by Ina Kee RN I agree with the Chief Complaint, ROS, and Past Histories independently gathered by the clinical donor support technician and the remaining scribed note accurately describes my personal service to the patient. patient's condition reviewed and examined plan of care and options of management, complexity, risk benefit limitation potential complication,success /failure of management, expected result and recovery discussed I spent a total of 30 minutes on the date of service which included preparing to see the patient, uoja-qs-qsjs patient care, completing clinical documentation, obtaining & reviewing separately anobtained history, performing a medically appropriate examination, counseling & educating the patient/family/caregiver, ordering medications, tests, or procedures, communicating with other healthcare providers, independently interpreting the results, communicating results to the patient care team, and continued patient care coordination. This is included in the documentation noted above. Tamra Goddard MD documented in this encounterSt. Rita'S Hospital08-21-2024 History of Present illness Narrative* Lona Nguyen MD - 07/02/2024 9:30 AM EDT Images from the original note were not [...] in usual sterile fashion (The planned incision lineswere drawn along relaxed skin tension lines, if [...] atypia Check Margins: yes Previous accession number: [id number] Excision today. See operative report. Return to clinic prior to next scheduled visit for any signs or symptoms of recurrence, reviewed the signs and symptoms. Follow up: 14 days for s/r documented [facility]08-20-2024 History of Present illness Narrative* Nathaly John MD - 07/01/2024 9:00 AM EDT Melly Savage is a 34 y.o. female [...] forehead Assessment & Plan documented [facility]06-18-2024 Miscellaneous Notes* Telephone Encounter - Scarlet Matthews - 04/29/2024 11:51 AM EDT Patient called and saw her US on mychart and saw that she has hepatic steatosis, she is wondering if that is something she should be concerned about. Please advise * Telephone Encounter - Andres Pickens MD - 04/29/2024 11:51 AM EDT No. Watch diet and keep weight down, limit alcohol. * Telephone Encounter - Scarlet Matthews - 04/29/2024 11:51 AM EDT Spoke with Melly and told her what Dr Pickens said. She was appreciative of the call back. documented in this encounterEast [facility] Regional Hospital06-18-2024 Telephone encounter Note* Telephone Encounter - Scarlet Cassie - 04/29/2024 11:51 AM EDT Patient called and saw her US on mychart and saw that she has hepatic steatosis, she is wondering if that is something she should be concerned about. Please advise [facility]06-18-2024 Telephone encounter Note* Telephone Encounter - Andres Pickens MD - 04/29/2024 11:51 AM EDT No. Watch diet and keep weight down, limit alcohol. [facility]06-18-2024 Telephone encounter Note* Telephone Encounter - Scarlet Matthews - 04/29/2024 11:51 AM EDT Spoke with Melly and told her what Dr Pickens said. She was appreciative of the call back. [facility]06-10-2024 Miscellaneous Notes* Telephone Encounter - Scarlet Matthews - 04/21/2024 2:17 PM EDT Melly called and said that you mentioned once she is 34 she should be retested for Polycystic Kidney Disease since it runs in her family. She also was just diagnosed with POCS. Can you order testingor does she need an appointment to see you? Please advise * Telephone Encounter - Andres Pickens MD - 04/21/2024 2:17 PM EDT Renal ultrasound ordered. * Telephone Encounter - Scarlet Matthews - 04/21/2024 2:17 PM EDT Left VM stating to call centralized scheduling to set up renal ultrasound, and to call the office if she had any other questions. documented in this encounterEast [facility] Regional Hospital06-10-2024 Telephone encounter Note* Telephone Encounter - Scarlet Matthews - 04/21/2024 2:17 PM EDT Melly called and said that you mentioned once she is 34 she should be retested for Polycystic Kidney Disease since it runs in her family. She also was just diagnosed with POCS. Can you order testingor does she need an appointment to see you? Please advise [facility]06-10-2024 Telephone encounter Note* Telephone Encounter - Andres Pickens MD - 04/21/2024 2:17 PM EDT Renal ultrasound ordered. [facility]06-10-2024 Telephone encounter Note* Telephone Encounter - Scarlet Matthews - 04/21/2024 2:17 PM EDT Left VM stating to call centralized scheduling to set up renal ultrasound, and to call the office if she had any other questions. [facility]01-08-2024 Miscellaneous Notes* Telephone Encounter - Nicole Severino CMA - 11/19/2023 1:35 PM EST Refill request, [facility] encounter Note* Telephone Encounter - Nicole Severino CMA - 11/19/2023 1:35 PM EST Refill request, [facility] Diagnosis Encounter for cosmetic surgery- Primary Other plastic surgery for unacceptable cosmetic appearance [facility] Diagnosis Glabellar wrinkles- Primary Other specified hypertrophic and atrophic condition of skin documented in this encounter [facility]* Diagnosis Neoplasm of uncertain behavior of skin of lower extremity- Primary documented in this encounter [facility]* Diagnosis Chest pain on breathing- Primary Painful respiration Right upper quadrant abdominal pain [facility] Diagnosis Onset Date Resolution Status Admit Date Influenza-like illness acuteFebruary 2024 11:34am [facility] Work Phone: Evaluation note* Diagnosis Family history of polycystic kidney disease- Primary Family history of polycystic kidney [facility] Diagnosis Cutaneous abscess of right lower extremity- Primary Primary hypertension Unspecified essential hypertension [facility]Not on filedocumented in this encounter [facility] filedocumented in this encounter [facility] on filedocumented in this encounter [facility]Not on filedocumented in this encounter [facility] Summary Purpose Family History No Family History Records FoundNo Family History Records FoundNo Family History Records FoundNo Family History Records FoundNo Family History Records Found Advance Directives Advance Directive Response Recorded Date/ Time Advance Directives No December 16, 2024 11:32am Chief Complaint and Reason for Visit Chief Complaint Admit Date Cough, congestion December 16, 2024 1 1:34am Reason for Visit Admit Date Influenza-like illness December 16 11:34am Additional Source Comments INFORMATION SOURCE (unrecogn ized section and content) DATE CREATED AUTHOR 06/05/2018 [facility] DATE CREATED AUTHOR AUTHOR'S ORGANIZ ATION 04/23/2024 [facility] DATE CREATED AUTHOR AUTHOR'S ORGANIZ ATION 07/02/2024 [facility] DATE CREATED AUTHOR AUTHOR'S ORGANIZ ATION 08/26/2024 [facility] DATE CREATED AUTHOR AUTHOR'S ORGANIZ ATION 06/25/2025 [facility] Source Comments (unrecognize d section and content) In the event this informatio n is protected by the Federal Confidentiality of Alcohol and Drug Abuse Patient Records regulations: The Federal rules restrict any use of the information to criminally investigate or prosecute any alcohol or drug abuse patient.[facility] the event this information is protected by the Federal Confidentiality of Alcohol and Drug Abuse Patient Records regulations: The Federal rules restrict any use of the information to criminally investigate or prosecute any alcohol or drug abuse patient.[facility] Reason for Visit (unrecogniz ed section and content) ReasonCommentsPHOTOS TAKENReasonCommentsConsultReasonCommentsExcisionReason CommentsER/FUBellevue, chest pain, had testing and was told it came back normal ReasonOnset DateCommentsMed [id number] RefillReason CommentsCellulitisRight [facility] Care Teams (unrecognized sec tion and content) Team MemberRelationshipSpecialtyStart DateEnd Date Nathaly John MD [address] [place] [address] PCP - GeneralFamily Medicine06/03/24Team MemberRelationshipSpecialtyStart DateEnd Date Nathaly John MD [address] [facility] [place] [address] PCP - GeneralChildren[facility]06/03/24Team MemberRelationshipSpecialtyStart DateEnd Date Nathaly John MD [address] [place] [address] [facility] - [facility]06/03/24Team MemberRelationshipSpecialtyStart DateEnd Date Andres Pickens MD [address] [place] [address], [address] [place] [address] PCP - GeneralPediatrics03/16/17 Team Status: Active Member Role Status Dates Andres Pickens MD Primary Care Provider Active Team Status: Inactive Member Role Status Dates Danelle Swain APRN Attending Provider Active Start: December 16, 2024 End: December 16, 2024Kenji Lewis Care ProviderActiveStart: December 16, 2024 End: December 16, 2024Team MemberRelationshipSpecialtyStart DateEnd Date Andres Pickens MD [address] [place] [address], [address] [place] [address] PCP - GeneralPediatrics03/16/17Team MemberRelationshipSpecialtyStart [place] [address] [place] [address], [address] [place] [address] PCP - GeneralPediatric03/16/17Te MemberRelationshipSpecialChildren's Hospital for [facility] DateEnd Date Andres Pickens MD [address] [place] [address], [address] [place] [address] [facility] - [facility]03/16/17[facility] MemberHealth[facility] DateEnd Date Andres Pickens MD [address] [place] [address], [address] [place] [id number] PCP - [facility]03/16/17 Goals (unrecognized section and content) Goals may be documented in a n alternate section FOR RECORDS PERTAINING TO PATIENTS WHO ARE [...] BE BASED ON THE PRIMARY CLINICAL RECORDS. [facility] [employer] [facility]. provides no warranty or guarantee of the accuracy or completeness of information in this document.
== END 2025-10-12 16:58 | disposition home or self-care (01) ==
PROVIDERS: Visit Provider Obstetrics & Gynecology
DX: Z32.01 Encounter for pregnancy test, result positive (principal); N92.6 Irregular menstruation, unspecified
CPT/HCPCS: 36415; 84702